=== PATIENT | female | born 1935 | race Two or more races ===

== ENCOUNTER 2016-04-23 10:47 | Inpatient (IN) | payer MEDICARE, OTHER ==
[2016-04-23] VITALS (17 sets, daily range): BP systolic 77–154; BP diastolic 34–113
[~2016-04-23] VITALS: Ht 162.6 cm; Wt 72.6 kg
[2016-04-23] MEDS ORDERED: CEFEPIME 1 GM in IV D5W 50 ML IV ONE (11:00)
[2016-04-23] MEDS ORDERED: IV NS 0.9% 1,000 ML BAG IV ONE ×2 (11:00→12:00)
[2016-04-23] MEDS ORDERED: VANCOMYCIN 1 GM in IV D5W 250 ML IV ONE (11:00)
[2016-04-23] MEDS ORDERED: IV SET PRIMARY PUMP SET 1 EA INFUS.SET MC ONE ×3 (11:11→17:39)
[2016-04-23] MEDS ORDERED: IV NS 0.9% 500 ML IV ONE ×3 (11:11→18:00)
[2016-04-23] MEDS ORDERED: IV SET PRIMARY 1 EA INFUS.SET MC ONE (11:11)
[2016-04-23] MEDS ORDERED: IV NS 0.9% 1,000 ML ONE ×2 (11:11→11:38)
[2016-04-23 11:13] LABS: BASOPHILS % (AUTO) 0.1 % (0.0-2.0); DIFF TOTAL % 100 %; EOSINOPHILS % (AUTO) 0.1 % (0.0-6.0); HEMATOCRIT 33 % (33-45); HEMOGLOBIN 10.4 g/dL (11.5-14.8); LYMPHOCYTES # (AUTO) 0.7 /CMM (0.8-4.8); LYMPHOCYTES % (AUTO) 4.2 % (20.0-44.0); MEAN CORPUSCULAR HEMOGLOBIN 28 PG (26.0-33.0); MEAN CORPUSCULAR HGB CONC 32 g/dl (31.0-36.0); MEAN CORPUSCULAR VOLUME 87 fL (82-100); MONOCYTES # (AUTO) 0.7 /CMM (0.1-1.30); MONOCYTES % (AUTO) 4.4 % (2.0-12.0); NEUTROPHILS # (AUTO) 15.1 /CMM (1.8-8.9); NEUTROPHILS % (AUTO) 91.2 % (43.0-81.0); PLATELET COUNT (AUTO) 285 /CMM (150-450); RED BLOOD CELL COUNT(AUTO) 3.75 MIL/uL (4.0-5.2); WHITE BLOOD COUNT (AUTO) 16.5 K/uL (4.3-11.0)
[2016-04-23] MEDS ORDERED: SECONDARY IV SET 1 EA INFUS.SET MC ONE (11:15)
[2016-04-23] MEDS ORDERED: ACETAMINOPHEN 650 MG/SUPP.RECT RC ONE ×2 (11:16→11:30)
[2016-04-23 11:25] LABS: ANION GAP 14 (5-14); CALCIUM, SERUM 8.2 mg/dL (8.5-10.1); CARBON DIOXIDE 30 mmol/L (21-32); CHLORIDE 100 mmol/L (98-107); CREATININE 2.1 mg/dL (0.6-1.3); GLUCOSE 164 mg/dL (74-106); POTASSIUM 3.7 mmol/L (3.5-5.1); SODIUM SERUM 140 mmol/L (136-145); UREA NITROGEN, BLOOD 16 mg/dL (7-18)
[2016-04-23 11:25] LABS: KETONES,URINE NEGATIVE (NEGATIVE); LEUKOCYTE ESTERASE ,URINE 2+ (NEGATIVE); PH,URINE 7.5 (5.0-8.0)
[2016-04-23 11:29] LABS: INR 1.01 (0.87-1.13); PROTHROMBIN TIME 10.6 SECS (9.5-12.7)
[2016-04-23 11:31] LABS: ALANINE AMINOTRANSFERASE 16 U/L (12-78); ALBUMIN 2.6 g/dL (3.4-5.0); ASPARTATE AMINOTRANSFERASE 42 U/L (15-37); BILIRUBIN,DIRECT 0.1 mg/dL (0.0-0.2); BILIRUBIN,TOTAL 0.3 mg/dL (0.2-1.0); INDIRECT BILIRUBIN 0.2 mg/dL (0.0-1.1); TOTAL PROTEIN, SERUM 7.8 g/dL (6.4-8.2)
[2016-04-23 11:33] LABS: TROPONIN I 0.025 ng/mL (0.00-0.056)
[2016-04-23 11:43] LABS: ABG BASE EXCESS 0.5 mmol/L; ABG HCO3 24.7 mmol/L; ABG PCO2 38.4 mmHg (35.0-45.0); ABG PH 7.427 (7.350-7.450); ABG PO2 169.5 mmHg (75.0-100.0); ALLEN TEST Pass; AaDO2 360.6 mmHg; O2Hb 98.2 % (94.0-97.0)
[2016-04-23 11:49] LABS: LACTIC ACID 3.1 mmol/L (0.4-2.0)
[2016-04-23 11:49] LABS: ADD UA MICROSCOPIC YES
[2016-04-23] MEDS ORDERED: LAMO25TA5 GT (11:49)
[2016-04-23] MEDS ORDERED: RISP0.253 GT (11:49)
[2016-04-23] MEDS ORDERED: ALBU2.5V12 IH (11:49)
[2016-04-23] MEDS ORDERED: GABA-532 GT (11:49)
[2016-04-23] MEDS ORDERED: ACET160S3 GT (11:49)
[2016-04-23] MEDS ORDERED: BRIN8DRO RIGHTEYE (11:49)
[2016-04-23] MEDS ORDERED: HYDR-3326 GT (11:49)
[2016-04-23] MEDS ORDERED: AMIN30LI4 GT (11:49)
[2016-04-23] MEDS ORDERED: LEVO200T8 GT (11:49)
[2016-04-23] MEDS ORDERED: FAMO20TA8 GT (11:49)
[2016-04-23] MEDS ORDERED: CALC1SOL2 GT (11:49)
[2016-04-23] MEDS ORDERED: TRAV5DRO RIGHTEYE (11:49)
[2016-04-23] MEDS ORDERED: APIX2.5T GT (11:49)
[2016-04-23] MEDS ORDERED: NA P133E RC (11:49)
[2016-04-23] MEDS ORDERED: [UNRECOGNIZED DRUG - CODE] SQ (11:49)
[2016-04-23] MEDS ORDERED: TAMS-12 GT (11:49)
[2016-04-23] MEDS ORDERED: MELA3TAB GT (11:49)
[2016-04-23] MEDS ORDERED: METO25TA6 GT (11:49)
[2016-04-23] MEDS ORDERED: FOLI0.8T2 GT (11:49)
[2016-04-23] MEDS ORDERED: AMIO200T2 GT (11:49)
[2016-04-23] MEDS ORDERED: MAGN400O6 GT (11:49)
[2016-04-23] MEDS ORDERED: MIRT15TA7 GT (11:49)
[2016-04-23] MEDS ORDERED: SODI650T GT (11:49)
[2016-04-23] MEDS ORDERED: ASPI81TA2 GT (11:49)
[2016-04-23] MEDS ORDERED: DOCU50LI GT (11:49)
[2016-04-23] MEDS ORDERED: LORA1TAB GT (11:49)
[2016-04-23] MEDS ORDERED: DONE5TAB3 GT (11:49)
[2016-04-23] MEDS ORDERED: ASCO500S2 GT (11:49)
[2016-04-23] MEDS ORDERED: BISA10SU8 RC (11:49)
[2016-04-23] MEDS ORDERED: PRAV20TA4 GT (11:49)
[2016-04-23] MEDS ORDERED: LEVO250T59 GT (11:49)
[2016-04-23] MEDS ORDERED: INSU100V7 SQ (11:49)
[2016-04-23] MEDS ORDERED: INSU100V27 SQ (11:49)
[2016-04-23] MEDS ORDERED: FERR220S2 GT (11:49)
[2016-04-23 12:01] LABS: ADD URINE CULTURE YES; WBC,URINE 21-50 /HPF (0-3)
[2016-04-23 12:09] LABS: *LACTIC ACID REFLEX FLAG YES
[2016-04-23] MEDS ORDERED: LORAZEPAM 1 MG TABLET GT PRN (14:00)
[2016-04-23] MEDS ORDERED: MAGNESIUM HYDROXIDE 30 ML UDC PO PRN (14:00)
[2016-04-23] MEDS ORDERED: HYDROCODONE/APAP 5/325MG 1 EACH TABLET PO PRN (14:00)
[2016-04-23] MEDS ORDERED: MAGNESIUM HYDROXIDE 30 ML UDC GT PRN (14:00)
[2016-04-23] MEDS ORDERED: NA PHOS,M-B/NA PHOS,DI-BA 1 EA ENEMA RC PRN (14:00)
[2016-04-23] MEDS ORDERED: ACETAMINOPHEN 325 MG TABLET PO PRN (14:00)
[2016-04-23] MEDS ORDERED: ZOLPIDEM TARTRATE 5 MG TABLET PO PRN (14:00)
[2016-04-23] MEDS ORDERED: HYDROCODONE/APAP 5/325MG 1 EACH TABLET GT PRN ×2 (14:00)
[2016-04-23] MEDS ORDERED: BISACODYL SUPP (10 MG) 10 MG/SUPP.RECT SUPP.RECT RC PRN (14:00)
[2016-04-23] MEDS ORDERED: MAG HYDROX/AL HYDROX/SIMETH 30 ML UDC PO PRN (14:00)
[2016-04-23] MEDS ORDERED: ONDANSETRON HCL/PF 4 MG/2 ML VIAL IVP PRN (14:00)
[2016-04-23] MEDS ORDERED: *INSULIN REGULAR(HUMULIN R)HUM 100 UNIT/ML VIAL SQ PRN (14:00)
[2016-04-23] MEDS ORDERED: ACETAMINOPHEN 650 MG/20.3 ML UDC GT PRN (14:00)
[2016-04-23] MEDS ORDERED: DEXTROSE 50%-WATER 50 ML DISP.SYRIN IV PRN (14:00)
[2016-04-23] MEDS ORDERED: FEE PK DOSING 1 MIN EA MC ONE (16:44)
[2016-04-23] MEDS ORDERED: ASCORBIC ACID SYRUP 500 MG/5 ML UDC GT SCH (17:00)
[2016-04-23] MEDS: METOPROLOL TARTRATE 25 MG TABLET GT SCH (17:00)
[2016-04-23] MEDS: BLOOD SUGAR DIAGNOSTIC 1 EACH STRIP VI SCH ×2 (17:30→22:02)
[2016-04-23] MEDS: risperiDONE 0.25 MG TABLET PO SCH (17:54)
[2016-04-23] MEDS: DOCUSATE SODIUM LIQ 100 MG/10 ML UDC GT SCH (17:54)
[2016-04-23] MEDS: FERROUS SULFATE (325 MG) 325 MG/TAB TABLET GT SCH (17:54)
[2016-04-23] MEDS: LamoTRIgine 25 MG TABLET GT SCH (17:55)
[2016-04-23] MEDS: BRINZOLAMIDE 1 % OPHTH SOLN 10 ML BOTTLE RIGHTEYE SCH (18:31)
[2016-04-23] MEDS: APIXABAN 2.5 MG TABLET GT SCH (18:31)
[2016-04-23] MEDS: PIPERACILLIN /TAZOBACTAM 2.25 G in IV D5W 50 ML IV SCH (19:32)
[2016-04-23] MEDS ORDERED: NOREPINEPHRINE 8 MG in IV D5W 500 ML IV PRN (21:00)
[2016-04-23 21:02] LABS: ABG BASE EXCESS -0.3 mmol/L; ABG HCO3 24.5 mmol/L; ABG PCO2 40.1 mmHg (35.0-45.0); ABG PH 7.403 (7.350-7.450); ABG PO2 171.5 mmHg (75.0-100.0); ABG TOTAL HEMOGLOBIN 9.1 G/dL (12.0-16.0); ALLEN TEST Pass; AaDO2 501.4 mmHg; O2Hb 97.1 % (94.0-97.0)
[2016-04-23] MEDS: INSULIN DETEMIR 100 UNIT/ML CARTRIDGE SQ SCH (22:00)
[2016-04-23] MEDS ORDERED: Medication Not On Formulary EA (Melatonin 6 MG) GT SCH (22:00)
[2016-04-23] MEDS ORDERED: PRAVASTATIN SODIUM 20 MG TABLET GT SCH (22:00)
[2016-04-23] MEDS: ATORVASTATIN 10 MG TABLET GT SCH (22:02)
[2016-04-23] MEDS: GABAPENTIN 100 MG CAPSULE GT SCH (22:02)
[2016-04-23] MEDS: DONEPEZIL 5 MG TABLET GT SCH (22:02)
[2016-04-23] MEDS: MIRTAZAPINE 15 MG TABLET GT SCH (22:02)
[2016-04-23] MEDS: LATANOPROST EYE DROP 0.005% 2.5 ML BOTTLE RIGHTEYE SCH (22:03)
[2016-04-23] MEDS: TAMSULOSIN 0.4 MG CAP.SR.24H GT SCH (22:05)
[2016-04-23] MEDS: ALBUTEROL FS 2.5 MG/0.5 ML VIAL.NEB IH SCH (22:50)
[2016-04-24] VITALS (81 sets, daily range): BP systolic 82–149; BP diastolic 38–94
[2016-04-24] MEDS: INSULIN REGULAR, HUMAN 100 UNIT/ML 3 ML VIAL SQ PRN ×5 (00:07→23:16)
[2016-04-24] MEDS ORDERED: IV SET PRIMARY PUMP SET 1 EA INFUS.SET MC ONE (01:36)
[2016-04-24] MEDS ORDERED: SECONDARY IV SET 1 EA INFUS.SET MC ONE (01:36)
[2016-04-24] MEDS ORDERED: IV NS 0.9% 250 ML IV ONE (01:37)
[2016-04-24] MEDS: PIPERACILLIN /TAZOBACTAM 2.25 G in IV D5W 50 ML IV SCH ×3 (02:19→17:36)
[2016-04-24 04:53] LABS: DIFF TOTAL % 100 %; HEMATOCRIT 27 % (33-45); HEMOGLOBIN 8.8 g/dL (11.5-14.8); LYMPHOCYTES # (AUTO) 1.2 /CMM (0.8-4.8); LYMPHOCYTES % (AUTO) 6.6 % (20.0-44.0); MEAN CORPUSCULAR HEMOGLOBIN 29 PG (26.0-33.0); MEAN CORPUSCULAR HGB CONC 32 g/dl (31.0-36.0); MEAN CORPUSCULAR VOLUME 88 fL (82-100); MONOCYTES # (AUTO) 0.7 /CMM (0.1-1.30); MONOCYTES % (AUTO) 4.3 % (2.0-12.0); NEUTROPHILS # (AUTO) 15.4 /CMM (1.8-8.9); NEUTROPHILS % (AUTO) 89.1 % (43.0-81.0); PLATELET COUNT (AUTO) 252 /CMM (150-450); RED BLOOD CELL COUNT(AUTO) 3.09 MIL/uL (4.0-5.2); WHITE BLOOD COUNT (AUTO) 17.3 K/uL (4.3-11.0)
[2016-04-24 05:09] LABS: CALCIUM, SERUM 7.1 mg/dL (8.5-10.1); CREATININE 2.8 mg/dL (0.6-1.3)
[2016-04-24 05:21] LABS: POTASSIUM 2.9 mmol/L (3.5-5.1)
[2016-04-24] MEDS: LEVOTHYROXINE SODIUM 100 MCG TABLET GT SCH (06:44)
[2016-04-24] MEDS: PANTOPRAZOLE 40 MG TABLET.DR PO SCH (06:44)
[2016-04-24] MEDS: FAMOTIDINE (20 MG) 20 MG TABLET GT SCH (06:44)
[2016-04-24] MEDS: BLOOD SUGAR DIAGNOSTIC 1 EACH STRIP VI SCH (06:53)
[2016-04-24] MEDS: ALBUTEROL FS 2.5 MG/0.5 ML VIAL.NEB IH SCH ×3 (07:45→23:36)
[2016-04-24] MEDS: risperiDONE 0.25 MG TABLET PO SCH ×2 (09:00→17:00)
[2016-04-24] MEDS ORDERED: SODIUM BICARBONATE 650 MG TABLET GT SCH (09:00)
[2016-04-24] MEDS: METOPROLOL TARTRATE 25 MG TABLET GT SCH ×2 (09:00→17:00)
[2016-04-24] MEDS: VIT B CMPLX 3/FA/VIT C/BIOTIN 1 TAB TABLET PO SCH (09:34)
[2016-04-24] MEDS: AMIODARONE HCL 200 MG TABLET GT SCH (09:34)
[2016-04-24] MEDS: LamoTRIgine 25 MG TABLET GT SCH ×2 (09:34→17:33)
[2016-04-24] MEDS: ASPIRIN 81 MG TAB.CHEW GT SCH (09:35)
[2016-04-24] MEDS: FERROUS SULFATE (325 MG) 325 MG/TAB TABLET GT SCH ×2 (09:35→17:33)
[2016-04-24] MEDS: APIXABAN 2.5 MG TABLET GT SCH (09:35)
[2016-04-24] MEDS: PROSOURCE / PROSTAT (PYXIS) 30 ML UDC GT SCH (09:36)
[2016-04-24] MEDS: DOCUSATE SODIUM LIQ 100 MG/10 ML UDC GT SCH ×2 (09:36→17:00)
[2016-04-24] MEDS: BRINZOLAMIDE 1 % OPHTH SOLN 10 ML BOTTLE RIGHTEYE SCH ×3 (09:37→17:35)
[2016-04-24] MEDS: INSULIN DETEMIR 100 UNIT/ML CARTRIDGE SQ SCH ×2 (09:37→21:16)
[2016-04-24] MEDS: ASCORBIC ACID 500 MG TABLET GT SCH ×2 (09:46→17:33)
[2016-04-24] MEDS ORDERED: POTASSIUM CHLORIDE 20 MEQ POWDER PACKET GT ONE (11:30)
[2016-04-24] MEDS ORDERED: POTASSIUM CHLORIDE 20 MEQ TAB.PRT.SR PO ONE (11:30)
[2016-04-24] MEDS: BLOOD SUGAR DIAGNOSTIC 1 EACH STRIP IN SCH ×3 (11:45→23:11)
[2016-04-24] MEDS ORDERED: BLOOD SUGAR DIAGNOSTIC 1 EACH STRIP IN SCH (12:00)
[2016-04-24] MEDS ORDERED: EPOETIN ALFA (10,000 UNIT) 10,000 UNIT/ML VIAL IV ONE (13:00)
[2016-04-24] MEDS ORDERED: CALCITRIOL ORAL SOLUTION 1 MCG/ML GT SCH (14:00)
[2016-04-24] MEDS ORDERED: EPOETIN ALFA (10,000 UNIT) 10,000 UNIT/ML VIAL SQ SCH (14:00)
[2016-04-24] MEDS: CALCITRIOL 0.25 MCG CAPSULE GT SCH (15:37)
[2016-04-24] MEDS: VANCOMYCIN 500 MG in IV D5W 100 ML IV PRN (15:57)
[2016-04-24] MEDS: ELIQUIS 2.5 MG GT SCH (17:32)
[2016-04-24] MEDS: LACTOBACILLUS RHAMNOSUS GG 1 EACH CAP.SPRINK GT SCH (17:33)
[2016-04-24] MEDS: DONEPEZIL 5 MG TABLET GT SCH (21:17)
[2016-04-24] MEDS: GABAPENTIN 100 MG CAPSULE GT SCH (21:17)
[2016-04-24] MEDS: TAMSULOSIN 0.4 MG CAP.SR.24H GT SCH (21:17)
[2016-04-24] MEDS: ATORVASTATIN 10 MG TABLET GT SCH (21:17)
[2016-04-24] MEDS: MIRTAZAPINE 15 MG TABLET GT SCH (21:18)
[2016-04-24] MEDS: LATANOPROST EYE DROP 0.005% 2.5 ML BOTTLE RIGHTEYE SCH (21:18)
[2016-04-25] VITALS (27 sets, daily range): BP systolic 63–158; BP diastolic 48–100
[2016-04-25] MEDS: PIPERACILLIN /TAZOBACTAM 2.25 G in IV D5W 50 ML IV SCH ×3 (02:54→17:12)
[2016-04-25 04:52] LABS: BASOPHILS % (AUTO) 0.1 % (0.0-2.0); DIFF TOTAL % 100 %; EOSINOPHILS % (AUTO) 0.1 % (0.0-6.0); HEMATOCRIT 27 % (33-45); HEMOGLOBIN 8.9 g/dL (11.5-14.8); LYMPHOCYTES % (AUTO) 10.7 % (20.0-44.0); MEAN CORPUSCULAR HEMOGLOBIN 28 PG (26.0-33.0); MEAN CORPUSCULAR HGB CONC 33 g/dl (31.0-36.0); MEAN CORPUSCULAR VOLUME 87 fL (82-100); MONOCYTES # (AUTO) 0.4 /CMM (0.1-1.30); MONOCYTES % (AUTO) 4.6 % (2.0-12.0); NEUTROPHILS # (AUTO) 8.1 /CMM (1.8-8.9); NEUTROPHILS % (AUTO) 84.5 % (43.0-81.0); PLATELET COUNT (AUTO) 236 /CMM (150-450); RED BLOOD CELL COUNT(AUTO) 3.14 MIL/uL (4.0-5.2); WHITE BLOOD COUNT (AUTO) 9.6 K/uL (4.3-11.0)
[2016-04-25 05:07] LABS: CALCIUM, SERUM 7.1 mg/dL (8.5-10.1); CREATININE 2.5 mg/dL (0.6-1.3)
[2016-04-25 05:19] LABS: POTASSIUM 3.4 mmol/L (3.5-5.1)
[2016-04-25] MEDS: INSULIN REGULAR, HUMAN 100 UNIT/ML 3 ML VIAL SQ PRN ×3 (05:41→17:12)
[2016-04-25] MEDS: BLOOD SUGAR DIAGNOSTIC 1 EACH STRIP IN SCH ×3 (05:42→17:13)
[2016-04-25] MEDS: LEVOTHYROXINE SODIUM 100 MCG TABLET GT SCH (06:37)
[2016-04-25] MEDS: PANTOPRAZOLE 40 MG TABLET.DR PO SCH (06:38)
[2016-04-25] MEDS: FAMOTIDINE (20 MG) 20 MG TABLET GT SCH (06:38)
[2016-04-25] MEDS: ALBUTEROL FS 2.5 MG/0.5 ML VIAL.NEB IH SCH ×3 (07:49→23:20)
[2016-04-25] MEDS: ELIQUIS 2.5 MG GT SCH ×2 (08:25→16:30)
[2016-04-25] MEDS: AMIODARONE HCL 200 MG TABLET GT SCH (08:26)
[2016-04-25] MEDS: DOCUSATE SODIUM LIQ 100 MG/10 ML UDC GT SCH ×2 (08:26→16:30)
[2016-04-25] MEDS: LACTOBACILLUS RHAMNOSUS GG 1 EACH CAP.SPRINK GT SCH ×2 (08:26→16:31)
[2016-04-25] MEDS: LamoTRIgine 25 MG TABLET GT SCH ×2 (08:26→16:31)
[2016-04-25] MEDS: ASCORBIC ACID 500 MG TABLET GT SCH ×2 (08:26→16:31)
[2016-04-25] MEDS: PROSOURCE / PROSTAT (PYXIS) 30 ML UDC GT SCH (08:26)
[2016-04-25] MEDS: ASPIRIN 81 MG TAB.CHEW GT SCH (08:26)
[2016-04-25] MEDS: VIT B CMPLX 3/FA/VIT C/BIOTIN 1 TAB TABLET PO SCH (08:26)
[2016-04-25] MEDS: risperiDONE 0.25 MG TABLET PO SCH ×2 (08:26→16:31)
[2016-04-25] MEDS: FERROUS SULFATE (325 MG) 325 MG/TAB TABLET GT SCH ×2 (08:26→16:31)
[2016-04-25] MEDS: METOPROLOL TARTRATE 25 MG TABLET GT SCH ×2 (08:27→16:30)
[2016-04-25] MEDS: Z GUARD REMEDY 2 OZ OINT TP PRN (08:28)
[2016-04-25] MEDS: BRINZOLAMIDE 1 % OPHTH SOLN 10 ML BOTTLE RIGHTEYE SCH ×3 (08:29→16:31)
[2016-04-25] MEDS ORDERED: POTASSIUM PHOSPHATE MM 15 MMOL in IV D5W 250 ML IV SCH (08:30)
[2016-04-25] MEDS: INSULIN DETEMIR 100 UNIT/ML CARTRIDGE SQ SCH ×2 (08:32→21:23)
[2016-04-25] MEDS ORDERED: IV SET PRIMARY PUMP SET 1 EA INFUS.SET MC ONE (09:54)
[2016-04-25] MEDS: GABAPENTIN 100 MG CAPSULE GT SCH (21:24)
[2016-04-25] MEDS: DONEPEZIL 5 MG TABLET GT SCH (21:24)
[2016-04-25] MEDS: MIRTAZAPINE 15 MG TABLET GT SCH (21:24)
[2016-04-25] MEDS: TAMSULOSIN 0.4 MG CAP.SR.24H GT SCH (21:24)
[2016-04-25] MEDS: ATORVASTATIN 10 MG TABLET GT SCH (21:24)
[2016-04-25] MEDS: RENAL NOVASOURCE 1,000 ML BOTTLE GT PRN (21:26)
[2016-04-25] MEDS ORDERED: LATANOPROST EYE DROP 0.005% 2.5 ML BOTTLE ONE (22:15)
[2016-04-25] MEDS: LATANOPROST EYE DROP 0.005% 2.5 ML BOTTLE RIGHTEYE SCH (23:07)
[2016-04-26] VITALS (9 sets, daily range): BP systolic 94–133; BP diastolic 50–92
[2016-04-26] MEDS: BLOOD SUGAR DIAGNOSTIC 1 EACH STRIP IN SCH ×5 (00:58→23:44)
[2016-04-26] MEDS: INSULIN REGULAR, HUMAN 100 UNIT/ML 3 ML VIAL SQ PRN ×4 (01:03→23:48)
[2016-04-26] MEDS ORDERED: IV NS 0.9% 250 ML IV ONE (02:32)
[2016-04-26] MEDS ORDERED: IV SET PRIMARY PUMP SET 1 EA INFUS.SET MC ONE (02:32)
[2016-04-26] MEDS ORDERED: SECONDARY IV SET 1 EA INFUS.SET MC ONE (02:33)
[2016-04-26] MEDS: PIPERACILLIN /TAZOBACTAM 2.25 G in IV D5W 50 ML IV SCH ×3 (02:37→17:37)
[2016-04-26] MEDS: ALBUTEROL FS 2.5 MG/0.5 ML VIAL.NEB IH SCH ×3 (07:41→23:08)
[2016-04-26] MEDS: AMIODARONE HCL 200 MG TABLET GT SCH (09:00)
[2016-04-26] MEDS: PROSOURCE / PROSTAT (PYXIS) 30 ML UDC GT SCH (09:00)
[2016-04-26] MEDS: BRINZOLAMIDE 1 % OPHTH SOLN 10 ML BOTTLE RIGHTEYE SCH ×3 (09:00→17:42)
[2016-04-26] MEDS: DOCUSATE SODIUM LIQ 100 MG/10 ML UDC GT SCH ×2 (09:40→16:12)
[2016-04-26] MEDS: METOPROLOL TARTRATE 25 MG TABLET GT SCH ×2 (09:41→16:11)
[2016-04-26] MEDS: PANTOPRAZOLE 40 MG TABLET.DR PO SCH (09:41)
[2016-04-26] MEDS: LEVOTHYROXINE SODIUM 100 MCG TABLET GT SCH (09:41)
[2016-04-26] MEDS: ASPIRIN 81 MG TAB.CHEW GT SCH (09:42)
[2016-04-26] MEDS: FAMOTIDINE (20 MG) 20 MG TABLET GT SCH (09:42)
[2016-04-26] MEDS: FERROUS SULFATE (325 MG) 325 MG/TAB TABLET GT SCH ×2 (09:43→16:12)
[2016-04-26] MEDS: ASCORBIC ACID 500 MG TABLET GT SCH ×2 (09:43→16:10)
[2016-04-26] MEDS: LamoTRIgine 25 MG TABLET GT SCH ×2 (09:43→16:10)
[2016-04-26] MEDS: VIT B CMPLX 3/FA/VIT C/BIOTIN 1 TAB TABLET PO SCH (09:43)
[2016-04-26] MEDS: LACTOBACILLUS RHAMNOSUS GG 1 EACH CAP.SPRINK GT SCH ×2 (09:43→16:10)
[2016-04-26 09:45] LABS: CALCIUM, SERUM 7.5 mg/dL (8.5-10.1); CREATININE 3.3 mg/dL (0.6-1.3); POTASSIUM 3.2 mmol/L (3.5-5.1)
[2016-04-26] MEDS: risperiDONE 0.25 MG TABLET PO SCH ×2 (09:57→16:10)
[2016-04-26] MEDS: ELIQUIS 2.5 MG GT SCH ×2 (09:58→17:36)
[2016-04-26] MEDS: INSULIN DETEMIR 100 UNIT/ML CARTRIDGE SQ SCH ×2 (10:33→21:08)
[2016-04-26] MEDS: DONEPEZIL 5 MG TABLET GT SCH (21:00)
[2016-04-26] MEDS: ATORVASTATIN 10 MG TABLET GT SCH (21:00)
[2016-04-26] MEDS: MIRTAZAPINE 15 MG TABLET GT SCH (21:00)
[2016-04-26] MEDS: GABAPENTIN 100 MG CAPSULE GT SCH (21:00)
[2016-04-26] MEDS: TAMSULOSIN 0.4 MG CAP.SR.24H GT SCH (21:03)
[2016-04-26] MEDS: LATANOPROST EYE DROP 0.005% 2.5 ML BOTTLE RIGHTEYE SCH (21:09)
[2016-04-26] MEDS: RENAL NOVASOURCE 1,000 ML BOTTLE GT PRN (21:09)
[2016-04-27] VITALS (9 sets, daily range): BP systolic 88–127; BP diastolic 45–61
[2016-04-27] MEDS: PIPERACILLIN /TAZOBACTAM 2.25 G in IV D5W 50 ML IV SCH ×3 (01:42→17:17)
[2016-04-27] MEDS ORDERED: IV NS 0.9% 250 ML IV ONE (05:16)
[2016-04-27] MEDS: BLOOD SUGAR DIAGNOSTIC 1 EACH STRIP IN SCH ×3 (05:43→17:17)
[2016-04-27] MEDS: INSULIN REGULAR, HUMAN 100 UNIT/ML 3 ML VIAL SQ PRN ×3 (05:45→17:31)
[2016-04-27 07:24] LABS: DIFF TOTAL % 100 %; EOSINOPHILS % (AUTO) 0.2 % (0.0-6.0); HEMATOCRIT 30 % (33-45); HEMOGLOBIN 9.6 g/dL (11.5-14.8); LYMPHOCYTES # (AUTO) 1.2 /CMM (0.8-4.8); LYMPHOCYTES % (AUTO) 9.8 % (20.0-44.0); MEAN CORPUSCULAR HEMOGLOBIN 28 PG (26.0-33.0); MEAN CORPUSCULAR HGB CONC 32 g/dl (31.0-36.0); MEAN CORPUSCULAR VOLUME 86 fL (82-100); MONOCYTES % (AUTO) 8.6 % (2.0-12.0); NEUTROPHILS # (AUTO) 9.6 /CMM (1.8-8.9); NEUTROPHILS % (AUTO) 81.4 % (43.0-81.0); PLATELET COUNT (AUTO) 277 /CMM (150-450); RED BLOOD CELL COUNT(AUTO) 3.47 MIL/uL (4.0-5.2); WHITE BLOOD COUNT (AUTO) 11.8 K/uL (4.3-11.0)
[2016-04-27 07:49] LABS: CALCIUM, SERUM 8.2 mg/dL (8.5-10.1); CREATININE 2.8 mg/dL (0.6-1.3); PHOSPHORUS 1.5 mg/dL (2.5-4.9); POTASSIUM 4.3 mmol/L (3.5-5.1)
[2016-04-27] MEDS: ALBUTEROL FS 2.5 MG/0.5 ML VIAL.NEB IH SCH ×3 (08:02→23:13)
[2016-04-27] MEDS: PROSOURCE / PROSTAT (PYXIS) 30 ML UDC GT SCH (09:15)
[2016-04-27] MEDS: ELIQUIS 2.5 MG GT SCH ×2 (09:15→17:26)
[2016-04-27] MEDS: DOCUSATE SODIUM LIQ 100 MG/10 ML UDC GT SCH ×2 (09:15→17:18)
[2016-04-27] MEDS: VIT B CMPLX 3/FA/VIT C/BIOTIN 1 TAB TABLET PO SCH (09:16)
[2016-04-27] MEDS: risperiDONE 0.25 MG TABLET PO SCH ×2 (09:16→17:18)
[2016-04-27] MEDS: LEVOTHYROXINE SODIUM 100 MCG TABLET GT SCH (09:16)
[2016-04-27] MEDS: LACTOBACILLUS RHAMNOSUS GG 1 EACH CAP.SPRINK GT SCH ×2 (09:16→17:18)
[2016-04-27] MEDS: FERROUS SULFATE (325 MG) 325 MG/TAB TABLET GT SCH ×2 (09:16→17:19)
[2016-04-27] MEDS: FAMOTIDINE (20 MG) 20 MG TABLET GT SCH (09:16)
[2016-04-27] MEDS: LamoTRIgine 25 MG TABLET GT SCH ×2 (09:16→17:17)
[2016-04-27] MEDS: ASPIRIN 81 MG TAB.CHEW GT SCH (09:16)
[2016-04-27] MEDS: PANTOPRAZOLE 40 MG TABLET.DR PO SCH (09:16)
[2016-04-27] MEDS: ASCORBIC ACID 500 MG TABLET GT SCH ×2 (09:16→17:19)
[2016-04-27] MEDS: AMIODARONE HCL 200 MG TABLET GT SCH (09:17)
[2016-04-27] MEDS: BRINZOLAMIDE 1 % OPHTH SOLN 10 ML BOTTLE RIGHTEYE SCH ×3 (09:17→17:18)
[2016-04-27] MEDS: METOPROLOL TARTRATE 25 MG TABLET GT SCH ×2 (09:18→17:25)
[2016-04-27] MEDS: INSULIN DETEMIR 100 UNIT/ML CARTRIDGE SQ SCH ×2 (09:26→21:56)
[2016-04-27] MEDS: CALCITRIOL 0.25 MCG CAPSULE GT SCH (15:06)
[2016-04-27] MEDS ORDERED: NEUTRA PHOS 1 POWD.PACKET GT ONE (19:30)
[2016-04-27] MEDS: LATANOPROST EYE DROP 0.005% 2.5 ML BOTTLE RIGHTEYE SCH (21:40)
[2016-04-27] MEDS: ATORVASTATIN 10 MG TABLET GT SCH (21:41)
[2016-04-27] MEDS: GABAPENTIN 100 MG CAPSULE GT SCH (21:41)
[2016-04-27] MEDS: DONEPEZIL 5 MG TABLET GT SCH (21:41)
[2016-04-27] MEDS: TAMSULOSIN 0.4 MG CAP.SR.24H GT SCH (21:41)
[2016-04-27] MEDS: MIRTAZAPINE 15 MG TABLET GT SCH (21:41)
[2016-04-28] MEDS: BLOOD SUGAR DIAGNOSTIC 1 EACH STRIP IN SCH ×4 (00:25→17:03)
[2016-04-28] MEDS: INSULIN REGULAR, HUMAN 100 UNIT/ML 3 ML VIAL SQ PRN ×4 (00:27→17:12)
[2016-04-28] MEDS: PIPERACILLIN /TAZOBACTAM 2.25 G in IV D5W 50 ML IV SCH ×3 (02:28→17:13)
[2016-04-28] MEDS: RENAL NOVASOURCE 1,000 ML BOTTLE GT PRN (03:21)
[2016-04-28 04:00] VITALS: BP_SYST 126; BP_DIAS 62; BP_DIAS 85
[2016-04-28] MEDS: ALBUTEROL FS 2.5 MG/0.5 ML VIAL.NEB IH SCH ×3 (07:13→23:28)
[2016-04-28 07:30] LABS: DIFF TOTAL % 100 %; EOSINOPHILS # (AUTO) 0.1 /CMM (0.0-0.7); EOSINOPHILS % (AUTO) 0.5 % (0.0-6.0); HEMATOCRIT 25 % (33-45); HEMOGLOBIN 8.3 g/dL (11.5-14.8); LYMPHOCYTES # (AUTO) 0.8 /CMM (0.8-4.8); LYMPHOCYTES % (AUTO) 8.2 % (20.0-44.0); MEAN CORPUSCULAR HEMOGLOBIN 29 PG (26.0-33.0); MEAN CORPUSCULAR HGB CONC 33 g/dl (31.0-36.0); MEAN CORPUSCULAR VOLUME 87 fL (82-100); MONOCYTES # (AUTO) 0.8 /CMM (0.1-1.30); MONOCYTES % (AUTO) 7.8 % (2.0-12.0); NEUTROPHILS # (AUTO) 8.4 /CMM (1.8-8.9); NEUTROPHILS % (AUTO) 83.5 % (43.0-81.0); PLATELET COUNT (AUTO) 324 /CMM (150-450); WHITE BLOOD COUNT (AUTO) 10.1 K/uL (4.3-11.0)
[2016-04-28 08:00] VITALS: BP 109/62
[2016-04-28 08:16] LABS: CALCIUM, SERUM 7.7 mg/dL (8.5-10.1); CREATININE 3.5 mg/dL (0.6-1.3); PHOSPHORUS 2.5 mg/dL (2.5-4.9); POTASSIUM 3.3 mmol/L (3.5-5.1)
[2016-04-28] MEDS: PROSOURCE / PROSTAT (PYXIS) 30 ML UDC GT SCH (08:44)
[2016-04-28] MEDS: BRINZOLAMIDE 1 % OPHTH SOLN 10 ML BOTTLE RIGHTEYE SCH ×3 (08:44→17:05)
[2016-04-28] MEDS: DOCUSATE SODIUM LIQ 100 MG/10 ML UDC GT SCH ×2 (08:45→17:03)
[2016-04-28] MEDS: PANTOPRAZOLE 40 MG/PACK PACK GT SCH (08:45)
[2016-04-28] MEDS: ASCORBIC ACID 500 MG TABLET GT SCH ×2 (08:45→17:04)
[2016-04-28] MEDS: ASPIRIN 81 MG TAB.CHEW GT SCH (08:45)
[2016-04-28] MEDS: FERROUS SULFATE (325 MG) 325 MG/TAB TABLET GT SCH ×2 (08:45→17:04)
[2016-04-28] MEDS: LamoTRIgine 25 MG TABLET GT SCH ×2 (08:45→17:04)
[2016-04-28] MEDS: LACTOBACILLUS RHAMNOSUS GG 1 EACH CAP.SPRINK GT SCH ×2 (08:45→17:04)
[2016-04-28] MEDS: FAMOTIDINE (20 MG) 20 MG TABLET GT SCH (08:45)
[2016-04-28] MEDS: LEVOTHYROXINE SODIUM 100 MCG TABLET GT SCH (08:45)
[2016-04-28] MEDS: risperiDONE 0.25 MG TABLET PO SCH ×2 (08:46→17:04)
[2016-04-28] MEDS: AMIODARONE HCL 200 MG TABLET GT SCH (08:46)
[2016-04-28] MEDS: VIT B CMPLX 3/FA/VIT C/BIOTIN 1 TAB TABLET PO SCH (08:46)
[2016-04-28] MEDS: METOPROLOL TARTRATE 25 MG TABLET GT SCH ×2 (08:47→17:05)
[2016-04-28] MEDS: INSULIN DETEMIR 100 UNIT/ML CARTRIDGE SQ SCH ×2 (09:09→21:49)
[2016-04-28] MEDS ORDERED: SECONDARY IV SET 1 EA INFUS.SET MC ONE (09:18)
[2016-04-28] MEDS: VANCOMYCIN 500 MG in IV D5W 100 ML IV PRN (09:47)
[2016-04-28] MEDS: ELIQUIS 2.5 MG GT SCH ×2 (10:13→17:04)
[2016-04-28] MEDS ORDERED: POTASSIUM CHLORIDE 20 MEQ TAB.PRT.SR PO ONE (11:00)
[2016-04-28] MEDS ORDERED: POTASSIUM CHLORIDE 20 MEQ POWDER PACKET GT SCH (13:00)
[2016-04-28] MEDS ORDERED: POTASSIUM CHLORIDE 20 MEQ POWDER PACKET GT ONE (13:30)
[2016-04-28 16:00] VITALS: BP 135/72
[2016-04-28] MEDS: Z GUARD REMEDY 2 OZ OINT TP PRN (17:05)
[2016-04-28 20:00] VITALS: BP 98/45
[2016-04-28] MEDS: DONEPEZIL 5 MG TABLET GT SCH (21:32)
[2016-04-28] MEDS: TAMSULOSIN 0.4 MG CAP.SR.24H GT SCH (21:32)
[2016-04-28] MEDS: ATORVASTATIN 10 MG TABLET GT SCH (21:32)
[2016-04-28] MEDS: MIRTAZAPINE 15 MG TABLET GT SCH (21:32)
[2016-04-28] MEDS: GABAPENTIN 100 MG CAPSULE GT SCH (21:32)
[2016-04-28] MEDS: LATANOPROST EYE DROP 0.005% 2.5 ML BOTTLE RIGHTEYE SCH (21:42)
[2016-04-29] MEDS ORDERED: hydrALAZINE HCL IV 20 MG VIAL ONE (01:04)
[2016-04-29] MEDS: PIPERACILLIN /TAZOBACTAM 2.25 G in IV D5W 50 ML IV SCH ×3 (01:49→17:43)
[2016-04-29 04:00] VITALS: BP 101/54
[2016-04-29] MEDS: BLOOD SUGAR DIAGNOSTIC 1 EACH STRIP IN SCH ×4 (06:00→18:03)
[2016-04-29] MEDS: FAMOTIDINE (20 MG) 20 MG TABLET GT SCH (06:25)
[2016-04-29] MEDS: LEVOTHYROXINE SODIUM 100 MCG TABLET GT SCH (06:26)
[2016-04-29] MEDS: DEXTROSE 50%-WATER 50 ML DISP.SYRIN IV PRN (06:50)
[2016-04-29 07:12] LABS: DIFF TOTAL % 100 %; EOSINOPHILS # (AUTO) 0.1 /CMM (0.0-0.7); EOSINOPHILS % (AUTO) 0.5 % (0.0-6.0); HEMATOCRIT 26 % (33-45); HEMOGLOBIN 8.4 g/dL (11.5-14.8); LYMPHOCYTES # (AUTO) 1.2 /CMM (0.8-4.8); LYMPHOCYTES % (AUTO) 6.7 % (20.0-44.0); MEAN CORPUSCULAR HEMOGLOBIN 29 PG (26.0-33.0); MEAN CORPUSCULAR HGB CONC 33 g/dl (31.0-36.0); MEAN CORPUSCULAR VOLUME 87 fL (82-100); MONOCYTES % (AUTO) 5.7 % (2.0-12.0); NEUTROPHILS # (AUTO) 15.7 /CMM (1.8-8.9); NEUTROPHILS % (AUTO) 87.1 % (43.0-81.0); PLATELET COUNT (AUTO) 375 /CMM (150-450); RED BLOOD CELL COUNT(AUTO) 2.93 MIL/uL (4.0-5.2)
[2016-04-29 08:00] VITALS: BP 122/59
[2016-04-29] MEDS: ALBUTEROL FS 2.5 MG/0.5 ML VIAL.NEB IH SCH ×3 (08:29→23:44)
[2016-04-29] MEDS: VIT B CMPLX 3/FA/VIT C/BIOTIN 1 TAB TABLET PO SCH (08:49)
[2016-04-29] MEDS: risperiDONE 0.25 MG TABLET PO SCH ×2 (08:49→17:37)
[2016-04-29] MEDS: FERROUS SULFATE (325 MG) 325 MG/TAB TABLET GT SCH ×2 (08:49→17:37)
[2016-04-29] MEDS: ASCORBIC ACID 500 MG TABLET GT SCH ×2 (08:49→17:38)
[2016-04-29] MEDS: PANTOPRAZOLE 40 MG/PACK PACK GT SCH (08:49)
[2016-04-29] MEDS: DOCUSATE SODIUM LIQ 100 MG/10 ML UDC GT SCH ×2 (08:49→17:37)
[2016-04-29] MEDS: PROSOURCE / PROSTAT (PYXIS) 30 ML UDC GT SCH (08:49)
[2016-04-29] MEDS: METOPROLOL TARTRATE 25 MG TABLET GT SCH ×2 (08:50→17:38)
[2016-04-29] MEDS: ASPIRIN 81 MG TAB.CHEW GT SCH (08:50)
[2016-04-29] MEDS: AMIODARONE HCL 200 MG TABLET GT SCH (08:50)
[2016-04-29] MEDS: LACTOBACILLUS RHAMNOSUS GG 1 EACH CAP.SPRINK GT SCH ×2 (08:50→17:37)
[2016-04-29] MEDS: LamoTRIgine 25 MG TABLET GT SCH ×2 (08:56→17:38)
[2016-04-29] MEDS: BRINZOLAMIDE 1 % OPHTH SOLN 10 ML BOTTLE RIGHTEYE SCH ×3 (08:57→17:00)
[2016-04-29] MEDS: ELIQUIS 2.5 MG GT SCH (09:00)
[2016-04-29] MEDS: INSULIN DETEMIR 100 UNIT/ML CARTRIDGE SQ SCH ×2 (09:00→21:18)
[2016-04-29 09:27] LABS: BILIRUBIN,TOTAL 0.3 mg/dL (0.2-1.0); CALCIUM, SERUM 7.8 mg/dL (8.5-10.1); PHOSPHORUS 2.7 mg/dL (2.5-4.9)
[2016-04-29 09:28] LABS: ALBUMIN 1.9 g/dL (3.4-5.0); TOTAL PROTEIN, SERUM 6.8 g/dL (6.4-8.2)
[2016-04-29 09:33] LABS: POTASSIUM 4.2 mmol/L (3.5-5.1)
[2016-04-29] MEDS: INSULIN REGULAR, HUMAN 100 UNIT/ML 3 ML VIAL SQ PRN (11:58)
[2016-04-29] MEDS: CALCITRIOL 0.25 MCG CAPSULE GT SCH (15:02)
[2016-04-29 16:00] VITALS: BP 108/47
[2016-04-29] MEDS: APIXABAN 2.5 MG TABLET PO SCH (18:03)
[2016-04-29 20:00] VITALS: BP 92/33
[2016-04-29] MEDS: TAMSULOSIN 0.4 MG CAP.SR.24H GT SCH (21:17)
[2016-04-29] MEDS: LATANOPROST EYE DROP 0.005% 2.5 ML BOTTLE RIGHTEYE SCH (21:17)
[2016-04-29] MEDS: MIRTAZAPINE 15 MG TABLET GT SCH (21:17)
[2016-04-29] MEDS: DONEPEZIL 5 MG TABLET GT SCH (21:17)
[2016-04-29] MEDS: GABAPENTIN 100 MG CAPSULE GT SCH (21:17)
[2016-04-29] MEDS: ATORVASTATIN 10 MG TABLET GT SCH (21:18)
[2016-04-29] MEDS ORDERED: IV NS 0.9% 250 ML IV ONE (21:20)
[2016-04-30] VITALS: BP 84/32
[2016-04-30] MEDS: BLOOD SUGAR DIAGNOSTIC 1 EACH STRIP IN SCH ×4 (00:57→16:51)
[2016-04-30] MEDS: INSULIN REGULAR, HUMAN 100 UNIT/ML 3 ML VIAL SQ PRN ×2 (01:01→16:56)
[2016-04-30] MEDS ORDERED: IV NS 0.9% 250 ML IV ONE ×3 (01:03→01:45)
[2016-04-30] MEDS: PIPERACILLIN /TAZOBACTAM 2.25 G in IV D5W 50 ML IV SCH (01:08)
[2016-04-30 04:00] VITALS: BP 89/41
[2016-04-30] MEDS: DEXTROSE 50%-WATER 50 ML DISP.SYRIN IV PRN (06:05)
[2016-04-30] MEDS: FAMOTIDINE (20 MG) 20 MG TABLET GT SCH (07:30)
[2016-04-30] MEDS: LEVOTHYROXINE SODIUM 100 MCG TABLET GT SCH (07:30)
[2016-04-30] MEDS: ALBUTEROL FS 2.5 MG/0.5 ML VIAL.NEB IH SCH ×3 (07:39→23:32)
[2016-04-30 08:00] VITALS: BP 81/39
[2016-04-30 08:03] LABS: CALCIUM, SERUM 7.4 mg/dL (8.5-10.1); CREATININE 3.8 mg/dL (0.6-1.3); POTASSIUM 4.3 mmol/L (3.5-5.1)
[2016-04-30] MEDS: LamoTRIgine 25 MG TABLET GT SCH ×2 (09:00→17:11)
[2016-04-30] MEDS: FERROUS SULFATE (325 MG) 325 MG/TAB TABLET GT SCH ×2 (09:00→17:07)
[2016-04-30] MEDS: PANTOPRAZOLE 40 MG/PACK PACK GT SCH (09:00)
[2016-04-30] MEDS: ASCORBIC ACID 500 MG TABLET GT SCH ×2 (09:00→17:00)
[2016-04-30] MEDS: ASPIRIN 81 MG TAB.CHEW GT SCH (09:00)
[2016-04-30] MEDS: PROSOURCE / PROSTAT (PYXIS) 30 ML UDC GT SCH (09:00)
[2016-04-30] MEDS: LACTOBACILLUS RHAMNOSUS GG 1 EACH CAP.SPRINK GT SCH ×2 (09:00→17:07)
[2016-04-30] MEDS: AMIODARONE HCL 200 MG TABLET GT SCH (09:00)
[2016-04-30] MEDS: INSULIN DETEMIR 100 UNIT/ML CARTRIDGE SQ SCH ×2 (09:00→21:39)
[2016-04-30] MEDS: risperiDONE 0.25 MG TABLET PO SCH ×2 (09:00→17:07)
[2016-04-30] MEDS: VIT B CMPLX 3/FA/VIT C/BIOTIN 1 TAB TABLET PO SCH (09:00)
[2016-04-30] MEDS: METOPROLOL TARTRATE 25 MG TABLET GT SCH ×2 (09:00→17:11)
[2016-04-30] MEDS: DOCUSATE SODIUM LIQ 100 MG/10 ML UDC GT SCH ×2 (09:00→17:06)
[2016-04-30] MEDS: APIXABAN 2.5 MG TABLET PO SCH ×2 (09:00→17:00)
[2016-04-30 09:18] LABS: DIFF TOTAL % 100 %; EOSINOPHILS # (AUTO) 0.1 /CMM (0.0-0.7); EOSINOPHILS % (AUTO) 0.4 % (0.0-6.0); HEMATOCRIT 24 % (33-45); HEMOGLOBIN 7.6 g/dL (11.5-14.8); LYMPHOCYTES # (AUTO) 1.4 /CMM (0.8-4.8); LYMPHOCYTES % (AUTO) 7.1 % (20.0-44.0); MEAN CORPUSCULAR HEMOGLOBIN 28 PG (26.0-33.0); MEAN CORPUSCULAR HGB CONC 32 g/dl (31.0-36.0); MEAN CORPUSCULAR VOLUME 88 fL (82-100); MONOCYTES # (AUTO) 1.2 /CMM (0.1-1.30); MONOCYTES % (AUTO) 6.4 % (2.0-12.0); NEUTROPHILS # (AUTO) 16.5 /CMM (1.8-8.9); NEUTROPHILS % (AUTO) 86.1 % (43.0-81.0); PLATELET COUNT (AUTO) 359 /CMM (150-450); WHITE BLOOD COUNT (AUTO) 19.1 K/uL (4.3-11.0)
[2016-04-30] MEDS: BRINZOLAMIDE 1 % OPHTH SOLN 10 ML BOTTLE RIGHTEYE SCH ×3 (09:45→17:07)
[2016-04-30 10:00] LABS: ANISOCYTOSIS 1+; BAND % (MANUAL) 3 % (0.0-5.0); LYMPHOCYTES % (MANUAL) 5 % (16-48); PLATELET ESTIMATE ADEQUATE
[2016-04-30] MEDS ORDERED: D5 IV PRN (10:00)
[2016-04-30] MEDS ORDERED: NACL IV PRN (10:00)
[2016-04-30] MEDS ORDERED: MEROPENEM 1 G in IV NS 0.9% 100 ML IV SCH (11:00)
[2016-04-30] MEDS ORDERED: IV D5/ 0.9% NACL 1,000 ML IV ONE (11:00)
[2016-04-30] MEDS: VANCOMYCIN HCL 125 MG/2.5 ML ORAL.SUSP PO SCH ×2 (12:00→18:00)
[2016-04-30] MEDS: MEROPENEM 500 MG in IV NS 0.9% 50 ML IV SCH (13:45)
[2016-04-30] MEDS: OSELTAMIVIR PHOSPHATE 75 MG CAPSULE PO SCH ×2 (13:50→17:11)
[2016-04-30] MEDS: NYSTATIN CREAM 15 GM TUBE TP SCH ×2 (13:51→17:07)
[2016-04-30 18:27] VITALS: BP 113/54
[2016-04-30 20:00] VITALS: BP 109/56
[2016-04-30] MEDS: ATORVASTATIN 10 MG TABLET GT SCH (21:37)
[2016-04-30] MEDS: TAMSULOSIN 0.4 MG CAP.SR.24H GT SCH (21:37)
[2016-04-30] MEDS: DONEPEZIL 5 MG TABLET GT SCH (21:37)
[2016-04-30] MEDS: GABAPENTIN 100 MG CAPSULE GT SCH (21:38)
[2016-04-30] MEDS: MIRTAZAPINE 15 MG TABLET GT SCH (21:38)
[2016-04-30] MEDS: LATANOPROST EYE DROP 0.005% 2.5 ML BOTTLE RIGHTEYE SCH (21:47)
[2016-05-01] VITALS: BP 116/57
[2016-05-01 00:28] VITALS: BP 116/57
[2016-05-01] MEDS: BLOOD SUGAR DIAGNOSTIC 1 EACH STRIP IN SCH ×4 (00:57→18:42)
[2016-05-01] MEDS: VANCOMYCIN HCL 125 MG/2.5 ML ORAL.SUSP PO SCH ×4 (00:57→18:45)
[2016-05-01] MEDS: INSULIN REGULAR, HUMAN 100 UNIT/ML 3 ML VIAL SQ PRN ×2 (01:03→18:49)
[2016-05-01 04:00] VITALS: BP 95/57
[2016-05-01] MEDS: ALBUTEROL FS 2.5 MG/0.5 ML VIAL.NEB IH SCH ×3 (07:31→23:30)
[2016-05-01 07:44] LABS: CALCIUM, SERUM 7.8 mg/dL (8.5-10.1)
[2016-05-01 08:00] VITALS: BP 107/60
[2016-05-01 08:04] LABS: DIFF TOTAL % 100 %; EOSINOPHILS # (AUTO) 0.1 /CMM (0.0-0.7); EOSINOPHILS % (AUTO) 0.9 % (0.0-6.0); HEMATOCRIT 25 % (33-45); LYMPHOCYTES # (AUTO) 1.1 /CMM (0.8-4.8); LYMPHOCYTES % (AUTO) 7.2 % (20.0-44.0); MEAN CORPUSCULAR HEMOGLOBIN 28 PG (26.0-33.0); MEAN CORPUSCULAR HGB CONC 32 g/dl (31.0-36.0); MEAN CORPUSCULAR VOLUME 88 fL (82-100); MONOCYTES # (AUTO) 0.8 /CMM (0.1-1.30); MONOCYTES % (AUTO) 5.4 % (2.0-12.0); NEUTROPHILS # (AUTO) 12.7 /CMM (1.8-8.9); NEUTROPHILS % (AUTO) 86.5 % (43.0-81.0); PLATELET COUNT (AUTO) 411 /CMM (150-450); RED BLOOD CELL COUNT(AUTO) 2.85 MIL/uL (4.0-5.2); WHITE BLOOD COUNT (AUTO) 14.7 K/uL (4.3-11.0)
[2016-05-01] MEDS: INSULIN DETEMIR 100 UNIT/ML CARTRIDGE SQ SCH ×2 (09:00→21:23)
[2016-05-01] MEDS ORDERED: IV SET PRIMARY PUMP SET 1 EA INFUS.SET MC ONE (09:41)
[2016-05-01] MEDS: FAMOTIDINE (20 MG) 20 MG TABLET GT SCH (10:13)
[2016-05-01] MEDS: PANTOPRAZOLE 40 MG/PACK PACK GT SCH (10:15)
[2016-05-01] MEDS: LEVOTHYROXINE SODIUM 100 MCG TABLET GT SCH (10:15)
[2016-05-01] MEDS: ASPIRIN 81 MG TAB.CHEW GT SCH (10:16)
[2016-05-01] MEDS: ASCORBIC ACID 500 MG TABLET GT SCH ×2 (10:16→18:44)
[2016-05-01] MEDS: VIT B CMPLX 3/FA/VIT C/BIOTIN 1 TAB TABLET PO SCH (10:16)
[2016-05-01] MEDS: LACTOBACILLUS RHAMNOSUS GG 1 EACH CAP.SPRINK GT SCH ×2 (10:16→18:43)
[2016-05-01] MEDS: DOCUSATE SODIUM LIQ 100 MG/10 ML UDC GT SCH ×2 (10:16→18:43)
[2016-05-01] MEDS: FERROUS SULFATE (325 MG) 325 MG/TAB TABLET GT SCH ×2 (10:17→18:43)
[2016-05-01] MEDS: APIXABAN 2.5 MG TABLET PO SCH ×2 (10:17→18:46)
[2016-05-01] MEDS: PROSOURCE / PROSTAT (PYXIS) 30 ML UDC GT SCH (10:17)
[2016-05-01] MEDS: OSELTAMIVIR PHOSPHATE 75 MG CAPSULE PO SCH (10:17)
[2016-05-01] MEDS: risperiDONE 0.25 MG TABLET PO SCH ×2 (10:18→18:43)
[2016-05-01] MEDS: AMIODARONE HCL 200 MG TABLET GT SCH (10:18)
[2016-05-01] MEDS: LamoTRIgine 25 MG TABLET GT SCH ×2 (10:18→18:43)
[2016-05-01] MEDS: METOPROLOL TARTRATE 25 MG TABLET GT SCH ×2 (10:19→17:00)
[2016-05-01] MEDS: NYSTATIN CREAM 15 GM TUBE TP SCH ×2 (10:20→18:47)
[2016-05-01] MEDS: BRINZOLAMIDE 1 % OPHTH SOLN 10 ML BOTTLE RIGHTEYE SCH ×3 (10:20→18:47)
[2016-05-01] MEDS: MEROPENEM 500 MG in IV NS 0.9% 50 ML IV SCH (13:40)
[2016-05-01] MEDS: LATANOPROST EYE DROP 0.005% 2.5 ML BOTTLE RIGHTEYE SCH (13:41)
[2016-05-01 16:00] VITALS: BP 95/43
[2016-05-01] MEDS: CALCITRIOL 0.25 MCG CAPSULE GT SCH (16:09)
[2016-05-01] MEDS: NYSTATIN TOP POWDER 15 GM BOTTLE TP SCH (18:45)
[2016-05-01 20:00] VITALS: BP 108/45
[2016-05-01] MEDS: TAMSULOSIN 0.4 MG CAP.SR.24H GT SCH (21:22)
[2016-05-01] MEDS: MIRTAZAPINE 15 MG TABLET GT SCH (21:22)
[2016-05-01] MEDS: GABAPENTIN 100 MG CAPSULE GT SCH (21:22)
[2016-05-01] MEDS: DONEPEZIL 5 MG TABLET GT SCH (21:22)
[2016-05-01] MEDS: ATORVASTATIN 10 MG TABLET GT SCH (21:22)
[2016-05-02] VITALS: BP 100/45
[2016-05-02] MEDS: VANCOMYCIN HCL 125 MG/2.5 ML ORAL.SUSP PO SCH ×4 (00:02→17:33)
[2016-05-02] MEDS: INSULIN REGULAR, HUMAN 100 UNIT/ML 3 ML VIAL SQ PRN (00:02)
[2016-05-02 04:00] VITALS: BP 98/43
[2016-05-02] MEDS: BLOOD SUGAR DIAGNOSTIC 1 EACH STRIP IN SCH ×5 (06:05→17:14)
[2016-05-02] MEDS: DEXTROSE 50%-WATER 50 ML DISP.SYRIN IV PRN ×2 (06:07→11:04)
[2016-05-02] MEDS: ALBUTEROL FS 2.5 MG/0.5 ML VIAL.NEB IH SCH ×3 (07:35→23:52)
[2016-05-02 07:38] LABS: DIFF TOTAL % 100 %; EOSINOPHILS % (AUTO) 0.3 % (0.0-6.0); HEMATOCRIT 24 % (33-45); HEMOGLOBIN 7.9 g/dL (11.5-14.8); LYMPHOCYTES # (AUTO) 0.7 /CMM (0.8-4.8); LYMPHOCYTES % (AUTO) 4.5 % (20.0-44.0); MEAN CORPUSCULAR HEMOGLOBIN 29 PG (26.0-33.0); MEAN CORPUSCULAR HGB CONC 33 g/dl (31.0-36.0); MEAN CORPUSCULAR VOLUME 88 fL (82-100); MONOCYTES # (AUTO) 0.8 /CMM (0.1-1.30); MONOCYTES % (AUTO) 4.7 % (2.0-12.0); NEUTROPHILS # (AUTO) 14.6 /CMM (1.8-8.9); NEUTROPHILS % (AUTO) 90.5 % (43.0-81.0); PLATELET COUNT (AUTO) 448 /CMM (150-450); RED BLOOD CELL COUNT(AUTO) 2.75 MIL/uL (4.0-5.2); WHITE BLOOD COUNT (AUTO) 16.1 K/uL (4.3-11.0)
[2016-05-02] MEDS: FAMOTIDINE (20 MG) 20 MG TABLET GT SCH (07:42)
[2016-05-02] MEDS: LEVOTHYROXINE SODIUM 100 MCG TABLET GT SCH (07:46)
[2016-05-02 08:00] VITALS: BP 85/45
[2016-05-02] MEDS: FERROUS SULFATE (325 MG) 325 MG/TAB TABLET GT SCH ×2 (08:06→17:06)
[2016-05-02] MEDS: ASPIRIN 81 MG TAB.CHEW GT SCH (08:07)
[2016-05-02] MEDS: PROSOURCE / PROSTAT (PYXIS) 30 ML UDC GT SCH ×3 (08:08→08:22)
[2016-05-02] MEDS: DOCUSATE SODIUM LIQ 100 MG/10 ML UDC GT SCH ×2 (08:08→17:05)
[2016-05-02] MEDS: AMIODARONE HCL 200 MG TABLET GT SCH (08:17)
[2016-05-02] MEDS: LamoTRIgine 25 MG TABLET GT SCH ×2 (08:18→17:30)
[2016-05-02] MEDS: METOPROLOL TARTRATE 25 MG TABLET GT SCH ×2 (08:21→17:00)
[2016-05-02] MEDS: LACTOBACILLUS RHAMNOSUS GG 1 EACH CAP.SPRINK GT SCH ×2 (08:23→17:28)
[2016-05-02] MEDS: INSULIN DETEMIR 100 UNIT/ML CARTRIDGE SQ SCH ×2 (08:30→22:11)
[2016-05-02] MEDS: PANTOPRAZOLE 40 MG/PACK PACK GT SCH (08:32)
[2016-05-02] MEDS: ASCORBIC ACID 500 MG TABLET GT SCH ×2 (09:00→17:09)
[2016-05-02] MEDS: APIXABAN 2.5 MG TABLET PO SCH ×2 (09:00→17:29)
[2016-05-02] MEDS: VIT B CMPLX 3/FA/VIT C/BIOTIN 1 TAB TABLET PO SCH (09:00)
[2016-05-02] MEDS: NYSTATIN CREAM 15 GM TUBE TP SCH ×2 (10:25→17:09)
[2016-05-02] MEDS: NYSTATIN TOP POWDER 15 GM BOTTLE TP SCH ×2 (10:26→17:08)
[2016-05-02] MEDS: LATANOPROST EYE DROP 0.005% 2.5 ML BOTTLE RIGHTEYE SCH (10:27)
[2016-05-02] MEDS: BRINZOLAMIDE 1 % OPHTH SOLN 10 ML BOTTLE RIGHTEYE SCH ×3 (10:29→17:07)
[2016-05-02] MEDS: risperiDONE 0.25 MG TABLET PO SCH ×2 (10:33→17:13)
[2016-05-02] MEDS: MEROPENEM 500 MG in IV NS 0.9% 50 ML IV SCH (11:07)
[2016-05-02] MEDS: VANCOMYCIN 500 MG in IV D5W 100 ML IV PRN ×2 (11:44→17:10)
[2016-05-02 16:00] VITALS: BP 94/46
[2016-05-02] MEDS ORDERED: VANCOMYCIN 500 MG in IV D5W 100 ML IV ONE (16:00)
[2016-05-02 20:00] VITALS: BP 92/41
[2016-05-02] MEDS: MIRTAZAPINE 15 MG TABLET GT SCH (22:07)
[2016-05-02] MEDS: DONEPEZIL 5 MG TABLET GT SCH (22:07)
[2016-05-02] MEDS: GABAPENTIN 100 MG CAPSULE GT SCH (22:07)
[2016-05-02] MEDS: ATORVASTATIN 10 MG TABLET GT SCH (22:07)
[2016-05-02] MEDS: TAMSULOSIN 0.4 MG CAP.SR.24H GT SCH (22:07)
[2016-05-03] MEDS: VANCOMYCIN FOR PO/GT USE 500 MG ORAL.SUSP PO SCH ×2 (00:45→05:12)
[2016-05-03 04:00] VITALS: BP 96/46
[2016-05-03] MEDS: DEXTROSE 50%-WATER 50 ML DISP.SYRIN IV PRN (05:16)
[2016-05-03 05:27] LABS: BASOPHILS % (AUTO) 0.2 % (0.0-2.0); DIFF TOTAL % 100 %; EOSINOPHILS # (AUTO) 0.1 /CMM (0.0-0.7); EOSINOPHILS % (AUTO) 0.5 % (0.0-6.0); HEMATOCRIT 25 % (33-45); LYMPHOCYTES # (AUTO) 1.6 /CMM (0.8-4.8); LYMPHOCYTES % (AUTO) 13.3 % (20.0-44.0); MEAN CORPUSCULAR HEMOGLOBIN 28 PG (26.0-33.0); MEAN CORPUSCULAR HGB CONC 32 g/dl (31.0-36.0); MEAN CORPUSCULAR VOLUME 87 fL (82-100); MONOCYTES % (AUTO) 7.7 % (2.0-12.0); NEUTROPHILS # (AUTO) 9.7 /CMM (1.8-8.9); NEUTROPHILS % (AUTO) 78.3 % (43.0-81.0); PLATELET COUNT (AUTO) 463 /CMM (150-450); RED BLOOD CELL COUNT(AUTO) 2.87 MIL/uL (4.0-5.2); WHITE BLOOD COUNT (AUTO) 12.4 K/uL (4.3-11.0)
[2016-05-03 05:38] LABS: CALCIUM, SERUM 7.7 mg/dL (8.5-10.1); CREATININE 3.1 mg/dL (0.6-1.3); POTASSIUM 3.3 mmol/L (3.5-5.1)
[2016-05-03] MEDS: BLOOD SUGAR DIAGNOSTIC 1 EACH STRIP IN SCH ×4 (06:20→23:43)
[2016-05-03 08:00] VITALS: BP 109/56
[2016-05-03] MEDS: ALBUTEROL FS 2.5 MG/0.5 ML VIAL.NEB IH SCH ×3 (08:41→22:59)
[2016-05-03] MEDS: INSULIN DETEMIR 100 UNIT/ML CARTRIDGE SQ SCH ×2 (09:00→21:09)
[2016-05-03] MEDS ORDERED: VANCOMYCIN HCL 125 MG/2.5 ML ORAL.SUSP PO SCH ×2 (09:00)
[2016-05-03 09:14] LABS: BASOPHILS % (AUTO) 0.2 % (0.0-2.0); DIFF TOTAL % 100 %; EOSINOPHILS # (AUTO) 0.1 /CMM (0.0-0.7); EOSINOPHILS % (AUTO) 0.6 % (0.0-6.0); HEMATOCRIT 26 % (33-45); HEMOGLOBIN 8.4 g/dL (11.5-14.8); LYMPHOCYTES # (AUTO) 1.2 /CMM (0.8-4.8); LYMPHOCYTES % (AUTO) 9.1 % (20.0-44.0); MEAN CORPUSCULAR HEMOGLOBIN 28 PG (26.0-33.0); MEAN CORPUSCULAR HGB CONC 33 g/dl (31.0-36.0); MEAN CORPUSCULAR VOLUME 87 fL (82-100); MONOCYTES # (AUTO) 0.9 /CMM (0.1-1.30); MONOCYTES % (AUTO) 6.9 % (2.0-12.0); NEUTROPHILS # (AUTO) 11.4 /CMM (1.8-8.9); NEUTROPHILS % (AUTO) 83.2 % (43.0-81.0); PLATELET COUNT (AUTO) 457 /CMM (150-450); RED BLOOD CELL COUNT(AUTO) 2.97 MIL/uL (4.0-5.2); WHITE BLOOD COUNT (AUTO) 13.7 K/uL (4.3-11.0)
[2016-05-03] MEDS: PANTOPRAZOLE 40 MG/PACK PACK GT SCH (09:36)
[2016-05-03] MEDS: PROSOURCE / PROSTAT (PYXIS) 30 ML UDC GT SCH (09:37)
[2016-05-03] MEDS: AMIODARONE HCL 200 MG TABLET GT SCH (09:37)
[2016-05-03] MEDS: LEVOTHYROXINE SODIUM 100 MCG TABLET GT SCH (09:37)
[2016-05-03] MEDS: ASPIRIN 81 MG TAB.CHEW GT SCH (09:37)
[2016-05-03] MEDS: ASCORBIC ACID 500 MG TABLET GT SCH ×2 (09:38→17:15)
[2016-05-03] MEDS: risperiDONE 0.25 MG TABLET PO SCH ×2 (09:38→17:15)
[2016-05-03] MEDS: LamoTRIgine 25 MG TABLET GT SCH ×2 (09:38→17:05)
[2016-05-03] MEDS: LACTOBACILLUS RHAMNOSUS GG 1 EACH CAP.SPRINK GT SCH ×2 (09:39→17:05)
[2016-05-03] MEDS: VIT B CMPLX 3/FA/VIT C/BIOTIN 1 TAB TABLET PO SCH (09:39)
[2016-05-03] MEDS: METOPROLOL TARTRATE 25 MG TABLET GT SCH ×2 (09:39→17:00)
[2016-05-03] MEDS: DOCUSATE SODIUM LIQ 100 MG/10 ML UDC GT SCH ×2 (09:39→17:00)
[2016-05-03] MEDS: FAMOTIDINE (20 MG) 20 MG TABLET GT SCH (09:39)
[2016-05-03] MEDS: FERROUS SULFATE (325 MG) 325 MG/TAB TABLET GT SCH ×2 (09:39→17:05)
[2016-05-03] MEDS: APIXABAN 2.5 MG TABLET PO SCH ×2 (09:40→17:15)
[2016-05-03] MEDS: NYSTATIN TOP POWDER 15 GM BOTTLE TP SCH ×2 (09:55→17:17)
[2016-05-03] MEDS: BRINZOLAMIDE 1 % OPHTH SOLN 10 ML BOTTLE RIGHTEYE SCH ×3 (09:56→17:17)
[2016-05-03] MEDS: NYSTATIN CREAM 15 GM TUBE TP SCH ×2 (09:57→17:17)
[2016-05-03] MEDS: MEROPENEM 500 MG in IV NS 0.9% 50 ML IV SCH (12:26)
[2016-05-03] MEDS ORDERED: IV SET PRIMARY PUMP SET 1 EA INFUS.SET MC ONE (12:32)
[2016-05-03] MEDS ORDERED: SECONDARY IV SET 1 EA INFUS.SET MC ONE (12:32)
[2016-05-03] MEDS ORDERED: IV NS 0.9% 250 ML IV ONE (12:33)
[2016-05-03] MEDS: VANCOMYCIN HCL 125 MG/2.5 ML ORAL.SUSP PO SCH ×3 (13:39→21:11)
[2016-05-03 16:00] VITALS: BP_SYST 100; BP_SYST 114; BP_DIAS 61; BP_DIAS 62
[2016-05-03] MEDS: INSULIN REGULAR, HUMAN 100 UNIT/ML 3 ML VIAL SQ PRN (17:09)
[2016-05-03] MEDS: RENAL NOVASOURCE 1,000 ML BOTTLE GT PRN ×2 (17:18→21:15)
[2016-05-03 20:00] VITALS: BP 102/51
[2016-05-03] MEDS ORDERED: POTASSIUM CHLORIDE 20 MEQ TAB.PRT.SR PO ONE ×2 (20:12→20:30)
[2016-05-03] MEDS: GABAPENTIN 100 MG CAPSULE GT SCH (21:10)
[2016-05-03] MEDS: TAMSULOSIN 0.4 MG CAP.SR.24H GT SCH (21:10)
[2016-05-03] MEDS: DONEPEZIL 5 MG TABLET GT SCH (21:11)
[2016-05-03] MEDS: ATORVASTATIN 10 MG TABLET GT SCH (21:11)
[2016-05-03] MEDS: LATANOPROST EYE DROP 0.005% 2.5 ML BOTTLE RIGHTEYE SCH (21:14)
[2016-05-03] MEDS: MIRTAZAPINE 15 MG TABLET GT SCH (21:14)
[2016-05-04 04:00] VITALS: BP 100/50
[2016-05-04] MEDS: BLOOD SUGAR DIAGNOSTIC 1 EACH STRIP IN SCH ×4 (05:58→23:15)
[2016-05-04] MEDS: INSULIN REGULAR, HUMAN 100 UNIT/ML 3 ML VIAL SQ PRN ×3 (06:03→17:37)
[2016-05-04 06:40] LABS: BASOPHILS % (AUTO) 0.3 % (0.0-2.0); DIFF TOTAL % 100 %; EOSINOPHILS # (AUTO) 0.1 /CMM (0.0-0.7); EOSINOPHILS % (AUTO) 1.2 % (0.0-6.0); HEMATOCRIT 25 % (33-45); HEMOGLOBIN 8.3 g/dL (11.5-14.8); LYMPHOCYTES # (AUTO) 0.9 /CMM (0.8-4.8); LYMPHOCYTES % (AUTO) 9.7 % (20.0-44.0); MEAN CORPUSCULAR HEMOGLOBIN 29 PG (26.0-33.0); MEAN CORPUSCULAR HGB CONC 33 g/dl (31.0-36.0); MEAN CORPUSCULAR VOLUME 87 fL (82-100); MONOCYTES # (AUTO) 0.7 /CMM (0.1-1.30); MONOCYTES % (AUTO) 7.8 % (2.0-12.0); NEUTROPHILS # (AUTO) 7.5 /CMM (1.8-8.9); PLATELET COUNT (AUTO) 481 /CMM (150-450); WHITE BLOOD COUNT (AUTO) 9.3 K/uL (4.3-11.0)
[2016-05-04 07:30] LABS: CALCIUM, SERUM 7.7 mg/dL (8.5-10.1); CREATININE 4.1 mg/dL (0.6-1.3); PHOSPHORUS 4.1 mg/dL (2.5-4.9); POTASSIUM 4.1 mmol/L (3.5-5.1)
[2016-05-04] MEDS: ALBUTEROL FS 2.5 MG/0.5 ML VIAL.NEB IH SCH ×3 (07:49→22:59)
[2016-05-04 08:00] VITALS: BP 116/51
[2016-05-04] MEDS: METOPROLOL TARTRATE 25 MG TABLET GT SCH ×2 (09:00→17:00)
[2016-05-04] MEDS: DOCUSATE SODIUM LIQ 100 MG/10 ML UDC GT SCH ×2 (09:00→17:00)
[2016-05-04] MEDS: VANCOMYCIN HCL 125 MG/2.5 ML ORAL.SUSP PO SCH ×4 (09:20→21:19)
[2016-05-04] MEDS: APIXABAN 2.5 MG TABLET PO SCH ×2 (09:20→17:28)
[2016-05-04] MEDS: PROSOURCE / PROSTAT (PYXIS) 30 ML UDC GT SCH (09:20)
[2016-05-04] MEDS: PANTOPRAZOLE 40 MG/PACK PACK GT SCH (09:21)
[2016-05-04] MEDS: FAMOTIDINE (20 MG) 20 MG TABLET GT SCH (09:21)
[2016-05-04] MEDS: LACTOBACILLUS RHAMNOSUS GG 1 EACH CAP.SPRINK GT SCH ×2 (09:21→17:27)
[2016-05-04] MEDS: FERROUS SULFATE (325 MG) 325 MG/TAB TABLET GT SCH ×2 (09:21→17:27)
[2016-05-04] MEDS: VIT B CMPLX 3/FA/VIT C/BIOTIN 1 TAB TABLET PO SCH (09:21)
[2016-05-04] MEDS: risperiDONE 0.25 MG TABLET PO SCH ×2 (09:21→17:27)
[2016-05-04] MEDS: LEVOTHYROXINE SODIUM 100 MCG TABLET GT SCH (09:21)
[2016-05-04] MEDS: ASCORBIC ACID 500 MG TABLET GT SCH ×2 (09:21→17:27)
[2016-05-04] MEDS: LamoTRIgine 25 MG TABLET GT SCH ×2 (09:21→17:27)
[2016-05-04] MEDS: ASPIRIN 81 MG TAB.CHEW GT SCH (09:23)
[2016-05-04] MEDS: AMIODARONE HCL 200 MG TABLET GT SCH (09:23)
[2016-05-04] MEDS: NYSTATIN CREAM 15 GM TUBE TP SCH ×2 (09:24→17:29)
[2016-05-04] MEDS: NYSTATIN TOP POWDER 15 GM BOTTLE TP SCH ×2 (09:24→17:29)
[2016-05-04] MEDS: BRINZOLAMIDE 1 % OPHTH SOLN 10 ML BOTTLE RIGHTEYE SCH ×3 (09:24→17:29)
[2016-05-04] MEDS: INSULIN DETEMIR 100 UNIT/ML CARTRIDGE SQ SCH ×2 (09:26→21:00)
[2016-05-04] MEDS ORDERED: SECONDARY IV SET 1 EA INFUS.SET MC ONE (11:15)
[2016-05-04] MEDS: FLUCONAZOLE IN NS 100 MG in PREMIX 1 EA IV SCH ×2 (11:23)
[2016-05-04] MEDS: MEROPENEM 500 MG in IV NS 0.9% 50 ML IV SCH (12:34)
[2016-05-04] MEDS: CALCITRIOL 0.25 MCG CAPSULE GT SCH (14:55)
[2016-05-04 16:00] VITALS: BP 109/58
[2016-05-04 20:00] VITALS: BP 109/55
[2016-05-04] MEDS: GABAPENTIN 100 MG CAPSULE GT SCH (21:26)
[2016-05-04] MEDS: ATORVASTATIN 10 MG TABLET GT SCH (21:26)
[2016-05-04] MEDS: MIRTAZAPINE 15 MG TABLET GT SCH (21:27)
[2016-05-04] MEDS: DONEPEZIL 5 MG TABLET GT SCH (21:27)
[2016-05-04] MEDS: TAMSULOSIN 0.4 MG CAP.SR.24H GT SCH (21:27)
[2016-05-04] MEDS: LATANOPROST EYE DROP 0.005% 2.5 ML BOTTLE RIGHTEYE SCH (21:43)
[2016-05-04 22:00] VITALS: BP 109/55
[2016-05-05 04:00] VITALS: BP 103/56
[2016-05-05] MEDS: RENAL NOVASOURCE 1,000 ML BOTTLE GT PRN (05:02)
[2016-05-05] MEDS: BLOOD SUGAR DIAGNOSTIC 1 EACH STRIP IN SCH ×3 (05:14→17:30)
[2016-05-05] MEDS: INSULIN REGULAR, HUMAN 100 UNIT/ML 3 ML VIAL SQ PRN ×3 (05:15→17:42)
[2016-05-05] MEDS: ALBUTEROL FS 2.5 MG/0.5 ML VIAL.NEB IH SCH ×2 (07:35→15:30)
[2016-05-05 08:00] VITALS: BP 123/75
[2016-05-05] MEDS: risperiDONE 0.25 MG TABLET PO SCH ×2 (08:39→17:18)
[2016-05-05] MEDS: VIT B CMPLX 3/FA/VIT C/BIOTIN 1 TAB TABLET PO SCH (08:41)
[2016-05-05] MEDS: METOPROLOL TARTRATE 25 MG TABLET GT SCH ×2 (08:41→17:17)
[2016-05-05] MEDS: DOCUSATE SODIUM LIQ 100 MG/10 ML UDC GT SCH ×2 (08:42→17:19)
[2016-05-05] MEDS: AMIODARONE HCL 200 MG TABLET GT SCH (08:42)
[2016-05-05] MEDS: FERROUS SULFATE (325 MG) 325 MG/TAB TABLET GT SCH ×2 (08:42→17:17)
[2016-05-05] MEDS: PROSOURCE / PROSTAT (PYXIS) 30 ML UDC GT SCH (08:42)
[2016-05-05] MEDS: LamoTRIgine 25 MG TABLET GT SCH ×2 (08:42→17:18)
[2016-05-05] MEDS: ASCORBIC ACID 500 MG TABLET GT SCH ×2 (08:42→17:18)
[2016-05-05] MEDS: APIXABAN 2.5 MG TABLET PO SCH ×2 (08:44→17:19)
[2016-05-05] MEDS: BRINZOLAMIDE 1 % OPHTH SOLN 10 ML BOTTLE RIGHTEYE SCH ×3 (08:46→17:18)
[2016-05-05] MEDS: NYSTATIN TOP POWDER 15 GM BOTTLE TP SCH ×2 (08:47→17:18)
[2016-05-05] MEDS: NYSTATIN CREAM 15 GM TUBE TP SCH ×2 (08:48→17:18)
[2016-05-05] MEDS: INSULIN DETEMIR 100 UNIT/ML CARTRIDGE SQ SCH (08:53)
[2016-05-05] MEDS: LACTOBACILLUS RHAMNOSUS GG 1 EACH CAP.SPRINK GT SCH ×2 (08:58→17:17)
[2016-05-05] MEDS: VANCOMYCIN HCL 125 MG/2.5 ML ORAL.SUSP PO SCH ×3 (08:58→17:18)
[2016-05-05] MEDS: ASPIRIN 81 MG TAB.CHEW GT SCH (08:58)
[2016-05-05] MEDS: LEVOTHYROXINE SODIUM 100 MCG TABLET GT SCH (08:59)
[2016-05-05] MEDS: FAMOTIDINE (20 MG) 20 MG TABLET GT SCH (09:17)
[2016-05-05 09:48] LABS: BASOPHILS % (AUTO) 0.1 % (0.0-2.0); EOSINOPHILS # (AUTO) 0.1 /CMM (0.0-0.7); HEMATOCRIT 26 % (33-45); HEMOGLOBIN 8.3 g/dL (11.5-14.8); LYMPHOCYTES # (AUTO) 0.9 /CMM (0.8-4.8); LYMPHOCYTES % (AUTO) 10.5 % (20.0-44.0); MEAN CORPUSCULAR HEMOGLOBIN 28 PG (26.0-33.0); MEAN CORPUSCULAR HGB CONC 32 g/dl (31.0-36.0); MEAN CORPUSCULAR VOLUME 87 fL (82-100); MONOCYTES # (AUTO) 0.8 /CMM (0.1-1.30); MONOCYTES % (AUTO) 9.3 % (2.0-12.0); NEUTROPHILS # (AUTO) 7.1 /CMM (1.8-8.9); NEUTROPHILS % (AUTO) 79.1 % (43.0-81.0); PLATELET COUNT (AUTO) 501 /CMM (150-450); RED BLOOD CELL COUNT(AUTO) 2.94 MIL/uL (4.0-5.2)
[2016-05-05 10:20] LABS: DIFF TOTAL % 100 %
[2016-05-05] MEDS: FLUCONAZOLE IN NS 100 MG in PREMIX 1 EA IV SCH ×2 (10:58)
[2016-05-05] MEDS ORDERED: FLU VACC QS 2016-17(36MOS+)/PF 0.5 ML DISP.SYRIN IM ONE (15:30)
[2016-05-05 17:45] VITALS: BP 133/65
== END 2016-05-05 18:40 | DRG 871 ==
LOC: ER 10:49 → TELE-TD 12:38 → ICU 20:45 → TELE1 04-25 18:52 → MEDSG1 04-26 13:17
PROVIDERS: ADMIT Internal Medicine; ATTEND Internal Medicine
PROC: 02HV33Z Insertion of Infusion Device into Superior Vena Cava, Percutaneous Approach (ICD-10-PCS; principal; 2016-04-24)
PROC: B548ZZA Ultrasonography of Superior Vena Cava, Guidance (ICD-10-PCS; 2016-04-24)
PROC: 5A1D60Z (ICD-10-PCS; 2016-04-24)
DX: A41.9 Sepsis, unspecified organism (principal); G92 Toxic encephalopathy; N18.6 End stage renal disease; J69.0 Pneumonitis due to inhalation of food and vomit; R53.2 Functional quadriplegia; I12.0 Hypertensive chronic kidney disease with stage 5 chronic kidney disease or end stage renal disease; E87.2 Acidosis; A04.7 Enterocolitis due to Clostridium difficile; B37.49 Other urogenital candidiasis; D68.59 Other primary thrombophilia; G93.1 Anoxic brain damage, not elsewhere classified; E11.22 Type 2 diabetes mellitus with diabetic chronic kidney disease; E03.9 Hypothyroidism, unspecified; F03.90 Unspecified dementia, unspecified severity, without behavioral disturbance, psychotic disturbance, mood disturbance, and anxiety; E78.5 Hyperlipidemia, unspecified; G40.909 Epilepsy, unspecified, not intractable, without status epilepticus; I48.0 Paroxysmal atrial fibrillation; Z86.73 Personal history of transient ischemic attack (TIA), and cerebral infarction without residual deficits; R65.20 Severe sepsis without septic shock; Z99.2 Dependence on renal dialysis; Z93.1 Gastrostomy status; F32.9 Major depressive disorder, single episode, unspecified; F41.9 Anxiety disorder, unspecified; Z74.01 Bed confinement status; Z87.01 Personal history of pneumonia (recurrent); M19.90 Unspecified osteoarthritis, unspecified site; K21.9 Gastro-esophageal reflux disease without esophagitis; J44.9 Chronic obstructive pulmonary disease, unspecified; R13.10 Dysphagia, unspecified; E11.40 Type 2 diabetes mellitus with diabetic neuropathy, unspecified; I95.9 Hypotension, unspecified; D63.8 Anemia in other chronic diseases classified elsewhere; E11.649 Type 2 diabetes mellitus with hypoglycemia without coma; E11.69 Type 2 diabetes mellitus with other specified complication; E83.39 Other disorders of phosphorus metabolism; E87.6 Hypokalemia; N31.9 Neuromuscular dysfunction of bladder, unspecified
CPT/HCPCS: 36415; 36600; 71010-TC; 80048-TC; 80053-TC; 80061-TC; 80076-TC; 80202-TC; 81000-TC; 82962-TC; 83605-TC; 83735-TC; 84100-TC; 84484-TC; 85025-TC; 85730-TC; 87040-TC; 87070-TC; 87081-TC; 87086-TC; 87400; 90935-TC; 92526; 92611-TC; 94640-TC; 94799-TC; A4216; A4606; A6253; J0360; J0692; J0885; J1450; J1815; J2185; J2543; J3370; J3490; J7030; J7040; J7042; J7050; J7060; Z7610

== ENCOUNTER 2016-08-13 18:49 | Inpatient (IN) | payer MEDICARE, OTHER ==
[~2016-08-13] VITALS: Ht 162.6 cm; Wt 72.6 kg
[~2016-08-13 18:49] MED LIST: ACET650S26 GT; ALBU2.5V13 IH; AMIN30LI4 GT; AMIO200T2 GT; APIX2.5T GT; ASCO500S2 GT; ASPI81TA2 GT; BISA10SU8 RC; BRIN8DRO RIGHTEYE; CALC1SOL2 GT; DOCU50LI GT; DONE5TAB3 GT; FAMO20TA8 GT; FERR220S2 GT; FOLI0.8T2 GT; GABA-532 GT; HYDR-3326 GT; INSU100V27 SQ; INSU100V7 SQ; LAMO25TA5 GT; LEVO200T8 GT; LORA1TAB GT; MAGN400O6 GT; MELA3TAB GT; METO25TA6 GT; MIRT15TA7 GT; NA P133E RC; PRAV20TA4 GT; RISP0.253 GT; SODI650T GT; TAMS-12 GT; TRAV5DRO RIGHTEYE; [UNRECOGNIZED DRUG - CODE] IART
--- NOTE | 2016-08-13 18:53 | NUR ---
MD HODGE AT
--- NOTE | 2016-08-13 18:55 | NUR ---
BIBRA FROM SNF DUE TO ABDOMINAL PAIN, 09/05, NON RADIATING. PATIENT IS AAO2, SERBIAN SPEAKIG ONLY. IN NO AUCTE DISTRESS, RESPIRATTION EVEN AND UNLABORED. SATING WELL ON ROOM AIR, NO NAUSEA AND VOMITTING. COMPALINT OF COSTIPATION, NO BOWEL MOVEMENT X 8 DAYS. NO ABDOMINAL DISTENTION NOTED. GOWEND AND PLACED PT ON TELE MONITOR. PENDING MD FREDERICK
--- NOTE | 2016-08-13 19:34 | NUR ---
PT TRANSPORTED TO RADIOLOGY FOR CT ABD/PELVIS.
[2016-08-13 19:38] LABS: BASOPHILS % (AUTO) 0.2 % (0.0-2.0); EOSINOPHILS % (AUTO) 0.2 % (0.0-6.0); HEMATOCRIT 40 % (33-45); HEMOGLOBIN 13.1 g/dL (11.5-14.8); LYMPHOCYTES % (AUTO) 10.1 % (20.0-44.0); MEAN CORPUSCULAR HEMOGLOBIN 27 PG (26.0-33.0); MEAN CORPUSCULAR HGB CONC 33 g/dl (31.0-36.0); MEAN CORPUSCULAR VOLUME 82 fL (82-100); MONOCYTES # (AUTO) 0.6 /CMM (0.1-1.30); MONOCYTES % (AUTO) 5.8 % (2.0-12.0); NEUTROPHILS # (AUTO) 8.7 /CMM (1.8-8.9); NEUTROPHILS % (AUTO) 83.7 % (43.0-81.0); PLATELET COUNT (AUTO) 288 /CMM (150-450); RDW COEFFICIENT OF VARIATION 15.9 (11.5-15.0); WHITE BLOOD COUNT (AUTO) 10.3 K/uL (4.3-11.0)
[2016-08-13] MEDS ORDERED: BRIM5DRO3 RIGHTEYE (19:39)
[2016-08-13] MEDS ORDERED: NUT.237L67 GT (19:39)
[2016-08-13] MEDS ORDERED: BLOO-668 IN (19:39)
[2016-08-13] MEDS ORDERED: INSU100V7 SQ (19:39)
[2016-08-13 19:40] LABS: CARBON DIOXIDE 24 mmol/L (21-32); CHLORIDE 97 mmol/L (98-107); CREATININE 2.5 mg/dL (0.6-1.3); GLUCOSE 171 mg/dL (74-106); POTASSIUM 3.8 mmol/L (3.5-5.1); SODIUM SERUM 137 mmol/L (136-145); UREA NITROGEN, BLOOD 16 mg/dL (7-18)
[2016-08-13 19:44] LABS: INR 0.99 (0.87-1.13); PROTHROMBIN TIME 10.3 SECS (9.5-12.7)
[2016-08-13 19:45] LABS: ALANINE AMINOTRANSFERASE 6 U/L (12-78); ALBUMIN 3.2 g/dL (3.4-5.0); ALKALINE PHOSPHATASE 136 U/L (46-116); ASPARTATE AMINOTRANSFERASE 23 U/L (15-37); BILIRUBIN,DIRECT 0.1 mg/dL (0.0-0.2); BILIRUBIN,TOTAL 0.5 mg/dL (0.2-1.0)
[2016-08-13 19:48] LABS: TROPONIN I < 0.017 ng/mL (0.00-0.056)
[2016-08-13 20:09] LABS: APPEARANCE,URINE Turbid (CLEAR); BILIRUBIN,URINE Negative (NEGATIVE); BLOOD, URINE Moderate Ery/uL (NEGATIVE); COLOR,URINE Yellow (YELLOW); KETONES,URINE Trace (NEGATIVE); LEUKOCYTE ESTERASE ,URINE Large (NEGATIVE); NITRITE, URINE Negative (NEGATIVE); PROTEIN,URINE >=300 mg/dl (NEGATIVE); UGLUCOSE Negative (NEGATIVE); UROBILINOGEN,URINE 0.2 EU/dL (0.2)
[2016-08-13 20:16] LABS: LACTIC ACID 2.4 mmol/L (0.4-2.0)
[2016-08-13 20:22] LABS: ADD URINE CULTURE YES; BACTERIA,URINE Many /HPF (None Seen); RBC,URINE 21-50 /HPF (0-2); SQUAMOUS EPITHELIAL CELL,UR Moderate /HPF (None Seen); WBC,URINE TOO NUMEROUS TO COUN /HPF (0-3)
--- NOTE | 2016-08-13 20:23 | NUR ---
PT SON AT BEDSIDE.
--- NOTE | 2016-08-13 20:37 | NUR ---
PANEL PAGED PER ER MD ORDER.
--- NOTE | 2016-08-13 20:46 | NUR ---
LA NENA ODONNELL TALKING TO DR. TRINH REGARDING PT ADMISSION.
[2016-08-13] MEDS ORDERED: PIPERACILLIN /TAZOBACTAM 2.25 G in IV D5W 50 ML IV ONE (21:00)
--- NOTE | 2016-08-13 21:18 | NUR ---
REPORT CALLED TO M/S MARIA LUISA JOSUE. WILL TRANSPORT PT TO M/S.
[2016-08-13] MEDS ORDERED: IV SET PRIMARY 1 EA INFUS.SET MC ONE (21:21)
[2016-08-13] MEDS ORDERED: PIPERACILLIN /TAZOBACTAM 3.375 G VIAL IV ONE (21:22)
[2016-08-13 21:30] VITALS: BP 128/87
[2016-08-13 21:36] VITALS: BP 123/87
--- NOTE | 2016-08-13 21:36 | NUR ---
MS RN NOTES RECEIVED PT FROM THE ER , PT IS AWAKE, A/O X 1. CONFUSED. VERBALLY RESPONSIVE IN DIVEHI. NO DISTRESS, NO SOB NOTED. GT IS INTACT AND PATENT. RCW HD CATH WITH INTACT DRESSING, NO BLEEDING AT THIS TIME. DENIES ANY PAIN OR DISCOMFORT AT THIS TIME. HOB ELEVATED FOR ASPIRATION PRECAUTION. FC IS INTACT AND PATENT DRAINING WITH THICK, CLOUDY URINE, NO HEMATURIA NOTED. IV SITE ON LAC INTACT AND PATENT. NO S/S OF INFILTRATION NOTED. SAFETY PRECAUTIONS OBSERVED. CALL LIGHT WITHIN REACH. WILL CONTINUE TO MONITOR.
[2016-08-13] MEDS ORDERED: IV NS 0.9% 1,000 ML IV PRN (21:59)
[2016-08-13] MEDS ORDERED: MAG HYDROX/AL HYDROX/SIMETH 30 ML UDC GT PRN (22:00)
[2016-08-13] MEDS ORDERED: HYDROCODONE/APAP 5/325MG 1 EACH TABLET GT PRN ×2 (22:00)
[2016-08-13] MEDS ORDERED: ACETAMINOPHEN 325 MG TABLET PO PRN (22:00)
[2016-08-13] MEDS ORDERED: BISACODYL SUPP (10 MG) 10 MG/SUPP.RECT SUPP.RECT RC PRN (22:00)
[2016-08-13] MEDS ORDERED: MAGNESIUM HYDROXIDE 30 ML UDC PO PRN (22:00)
[2016-08-13] MEDS ORDERED: NA PHOS,M-B/NA PHOS,DI-BA 1 EA ENEMA RC PRN (22:00)
[2016-08-13] MEDS ORDERED: ONDANSETRON HCL/PF 4 MG/2 ML VIAL IVP PRN (22:00)
[2016-08-13] MEDS ORDERED: PRAVASTATIN SODIUM 20 MG TABLET GT SCH (22:00)
[2016-08-13] MEDS ORDERED: LORAZEPAM 1 MG TABLET GT PRN (22:00)
[2016-08-13] MEDS ORDERED: NEPRO VAN 237 ML CAN GT SCH (22:00)
[2016-08-13] MEDS ORDERED: Medication Not On Formulary EA (Melatonin 3 MG) GT SCH (22:00)
[2016-08-13] MEDS ORDERED: MAGNESIUM HYDROXIDE 30 ML UDC GT PRN (22:00)
[2016-08-13] MEDS ORDERED: ACETAMINOPHEN 650 MG/20.3 ML UDC GT PRN (22:00)
[2016-08-13] MEDS: SODIUM BICARBONATE 650 MG TABLET GT SCH (22:00)
[2016-08-13] MEDS ORDERED: LACTULOSE 10 G/15 ML UDC (PYXIS) ONE (22:30)
[2016-08-13] MEDS ORDERED: DONEPEZIL 5 MG TABLET ONE (22:42)
[2016-08-13] MEDS ORDERED: GABAPENTIN 100 MG CAPSULE ONE (22:43)
[2016-08-13] MEDS ORDERED: METOPROLOL TARTRATE 25 MG TABLET ONE (22:43)
[2016-08-13] MEDS ORDERED: MIRTAZAPINE 15 MG TABLET ONE (22:45)
[2016-08-13] MEDS ORDERED: CEFTRIAXONE 1 G VIAL ONE (22:47)
[2016-08-13] MEDS ORDERED: SECONDARY IV SET 1 EA INFUS.SET MC ONE (22:47)
[2016-08-13] MEDS ORDERED: IV D5W 50 ML IV ONE (22:47)
[2016-08-13] MEDS ORDERED: IV NS 0.9% 1,000 ML BAG IV PRN ×3 (23:00→23:30)
[2016-08-13] MEDS ORDERED: RENAL NOVASOURCE 1,000 ML BOTTLE ONE (23:07)
[2016-08-13] MEDS ORDERED: IV NS 0.9% 1,000 ML ONE (23:29)
[2016-08-13] MEDS ORDERED: IV SET PRIMARY PUMP SET 1 EA INFUS.SET MC ONE (23:30)
[2016-08-13] MEDS: IV NS 0.9% 1,000 ML IV PRN (23:35)
[2016-08-13] MEDS: LACTULOSE 10 G/15 ML UDC (PYXIS) PO SCH (23:39)
[2016-08-13] MEDS: GABAPENTIN 100 MG CAPSULE GT SCH (23:40)
[2016-08-13] MEDS: DONEPEZIL 5 MG TABLET GT SCH (23:40)
[2016-08-13] MEDS: MIRTAZAPINE 15 MG TABLET GT SCH (23:40)
[2016-08-13] MEDS: METOPROLOL TARTRATE 25 MG TABLET GT SCH (23:40)
[2016-08-13] MEDS: CEFTRIAXONE 1 G in IV D5W 50 ML IV SCH (23:45)
[2016-08-13] MEDS: BLOOD SUGAR DIAGNOSTIC 1 EACH STRIP IN SCH (23:55)
[2016-08-14] MEDS ORDERED: LORAZEPAM 1 MG TABLET ONE (00:23)
--- NOTE | 2016-08-14 00:30 | NUR ---
PT WITH EPISODES OF PULLING GT AT THE FACILITY PER ED, BACK HAND. PT'S SON REQUESTING TO PUT ABDOMINAL BINDER. PT NOTED WITH PULLING OF GT, EVEN THOUGH CONSTANT REMINDER WAS GIVEN , INFORMED DR. TRINH, PER MD, PT OK TO HAVE ABDOMINAL BINDER NOTED AND CARRIED OUT.
--- NOTE | 2016-08-14 01:01 | NUR ---
AMEND: DISREGARD BS : 95 , BELONGS TO OTHER PATIENT.
--- NOTE | 2016-08-14 01:30 | NUR ---
CLARIFIED GTF ORDER WITH DR. GAYATHRI RECINOS NEW ORDERS NOTED AND CARRIED OUT.
[2016-08-14] MEDS ORDERED: HYDROCODONE/APAP 5/325MG 1 EACH TABLET ONE (02:57)
[2016-08-14] MEDS ORDERED: LACTULOSE 10 G/15 ML UDC (PYXIS) ONE ×2 (02:58→06:25)
[2016-08-14] MEDS: LACTULOSE 10 G/15 ML UDC (PYXIS) PO SCH ×3 (03:03→08:47)
[2016-08-14] MEDS ORDERED: RENAL NOVASOURCE 1,000 ML BOTTLE GT PRN (05:00)
[2016-08-14] MEDS: BLOOD SUGAR DIAGNOSTIC 1 EACH STRIP IN SCH ×4 (05:52→23:16)
[2016-08-14] MEDS ORDERED: Medication Not On Formulary EA (Insulin Glargine,Hum.rec.anlog (Lantus) 20 UNIT) SQ SCH (06:00)
[2016-08-14 06:33] LABS: BASOPHILS % (AUTO) 0.1 % (0.0-2.0); HEMATOCRIT 40 % (33-45); LYMPHOCYTES # (AUTO) 0.9 /CMM (0.8-4.8); LYMPHOCYTES % (AUTO) 7.7 % (20.0-44.0); MEAN CORPUSCULAR HEMOGLOBIN 27 PG (26.0-33.0); MEAN CORPUSCULAR HGB CONC 32 g/dl (31.0-36.0); MEAN CORPUSCULAR VOLUME 83 fL (82-100); MONOCYTES # (AUTO) 0.7 /CMM (0.1-1.30); MONOCYTES % (AUTO) 5.8 % (2.0-12.0); NEUTROPHILS # (AUTO) 10.1 /CMM (1.8-8.9); NEUTROPHILS % (AUTO) 86.4 % (43.0-81.0); PLATELET COUNT (AUTO) 295 /CMM (150-450); RDW COEFFICIENT OF VARIATION 17.1 (11.5-15.0); RED BLOOD CELL COUNT(AUTO) 4.85 MIL/uL (4.0-5.2); WHITE BLOOD COUNT (AUTO) 11.7 K/uL (4.3-11.0)
--- NOTE | 2016-08-14 06:46 | NUR ---
MS RN NOTES PT IN BED, AWAKE, A/O X 1. CONFUSED WITH PERIODS OF RESTLESSNESS, PULLING GT AND IV. VERBALLY RESPONSIVE IN LAO. NO DISTRESS, NO SOB NOTED. GT IS INTACT AND PATENT. NOVASOURCE RENAL GTF MARILU WELL. NO RESIDUAL NOTED. PT NOTED WITH LATRICE FARRELL AMT OF BM , DR. TRINH AWARE AND PER MD TO CONT LACTULOSE 30 ML Q 4H. RCW HD CATH WITH INTACT DRESSING, NO BLEEDING AT THIS TIME. DENIES ANY PAIN OR DISCOMFORT AT THIS TIME. HOB ELEVATED FOR ASPIRATION PRECAUTION. FC IS INTACT AND PATENT DRAINING WITH YELLOW URINE, NO HEMATURIA NOTED. NO S/S OF HYPERGLYCEMIA NOTED. IV SITE ON LAC INTACT AND PATENT. NO S/S OF INFILTRATION NOTED. SAFETY PRECAUTIONS OBSERVED. CALL LIGHT WITHIN REACH. WILL ENDORSE TO NEXT SHIFT FOR ISABELLE.
[2016-08-14 07:01] LABS: ALBUMIN 3.1 g/dL (3.4-5.0); BILIRUBIN,TOTAL 0.4 mg/dL (0.2-1.0); CALCIUM, SERUM 8.7 mg/dL (8.5-10.1); CREATININE 3.1 mg/dL (0.6-1.3); MAGNESIUM 2.1 mg/dL (1.8-2.4); PHOSPHORUS 4.2 mg/dL (2.5-4.9); POTASSIUM 3.4 mmol/L (3.5-5.1); TOTAL PROTEIN, SERUM 8.8 g/dL (6.4-8.2)
--- NOTE | 2016-08-14 07:30 | NUR ---
RN OPEN NOTES RECEIVED REPORT FROM GLAZING SUPERINTENDENT NURSE. PATIENT IS IN BED, AWAKE. NO SIGN AND SYMPTOMS OF DISTRESS. IV SITE IS INTACT AND PATENT. WILL CONTINUE TO ASSESS AND MONITOR PATIENT THROUGH OUT MY SHIFT.
[2016-08-14 08:00] VITALS: BP 141/91
[2016-08-14] MEDS: PANTOPRAZOLE 40 MG VIAL IV SCH (08:45)
[2016-08-14] MEDS: PROSOURCE / PROSTAT (PYXIS) 30 ML UDC GT SCH ×2 (08:45→16:56)
[2016-08-14] MEDS: DOCUSATE SODIUM LIQ 100 MG/10 ML UDC GT SCH ×2 (08:45→16:53)
[2016-08-14] MEDS: METOPROLOL TARTRATE 25 MG TABLET GT SCH ×2 (08:46→16:56)
[2016-08-14] MEDS: ASCORBIC ACID 500 MG TABLET GT SCH ×2 (08:46→16:56)
[2016-08-14] MEDS: AMIODARONE HCL 200 MG TABLET GT SCH (08:46)
[2016-08-14] MEDS: ASPIRIN 81 MG TAB.CHEW GT SCH (08:46)
--- NOTE | 2016-08-14 09:00 | NUR ---
PER NURSE PRACTITIONER ESTELITA, PATIENT TO BE KEPT ON NPO TILL NUTRITIONAL EVALUATION COMPLETED.
--- NOTE | 2016-08-14 09:00 | NUR ---
PATIENT HAD A BOWEL MOVEMENT, LACTOLOSE HELD PER MD ORDER
[2016-08-14] MEDS ORDERED: POTASSIUM CHLORIDE 20 MEQ POWDER PACKET GT ONE (10:30)
[2016-08-14] MEDS: APIXABAN 2.5 MG TABLET GT SCH ×2 (11:06→16:57)
[2016-08-14] MEDS: BRIMONIDINE TARTRATE OPHT SOLN 5 ML BOTTLE RIGHTEYE SCH ×3 (11:06→16:56)
[2016-08-14] MEDS: LEVOTHYROXINE SODIUM 100 MCG TABLET PO SCH (11:06)
--- NOTE | 2016-08-14 13:09 | NUR ---
SPOKE TO NURSE PRACTITIONER ESTELITA REGARDING THE BLOOD SUGAR LEVEL. NEW ORDERS RECEIVED AND CARRIED OUT
[2016-08-14] MEDS ORDERED: DEXTROSE 50%-WATER 50 ML DISP.SYRIN IV PRN (13:30)
[2016-08-14] MEDS: INSULIN REGULAR, HUMAN 100 UNIT/ML 3 ML VIAL SQ PRN ×3 (14:10→23:20)
[2016-08-14] MEDS: SODIUM BICARBONATE 650 MG TABLET GT SCH (15:41)
[2016-08-14 16:00] VITALS: BP 119/76
--- NOTE | 2016-08-14 18:36 | NUR ---
RN CLOSING NOTES PATIENT IS ALERT AND ORIENTED TO NAME. PATIENT IS VERY CONFUSED. NO SIGNS AND SYMPTOMS OF DISTRESS. IV SITE IS INTACT AND PATENT, CURRENTLY RUNNING NS @60ML/HR. POTASSIUM REPLACED. DIALYSIS 08/15 7AM. PENDING FNS CONSULT FOR PO FOOD. SEE REFER TO BLOOD SUGAR NOTES. WILL ENDORSE TO COT ASSEMBLER NURSE.
--- NOTE | 2016-08-14 19:35 | NUR ---
MSRN FULLY AWAKE REFUSED TO BE ASSESSED. UNCOOPERATIVE OF THIS TIME. BUSH TO GRAVITY, OUTPUT MONITORED. NO SOB, MS STATUS. TO CONTINUE. FALL PRECAUTIONS OBSERVED.
[2016-08-14 20:00] VITALS: BP 102/64
--- NOTE | 2016-08-14 20:40 | NUR ---
MSRN PARTIALLY BATHED, PLEASANTLY CONFUSED. INSISTED TO HAVE A DRINK OF SODA. HAD SMALL BM, SKIN INTACT. REPOSITIONED FOR COMFORT, REALITY ORIENTATION, DOES NOT SEEM TO FOLLOW. GT WITH ABDOMINAL BINDER IN PLACE TO PREVENT PATIENT FROM PUULINE LINES. RIGHT CW PERMACATH DRESSING INTACT SECURELY TAPED.
[2016-08-14] MEDS: GABAPENTIN 100 MG CAPSULE GT SCH (21:17)
[2016-08-14] MEDS: MIRTAZAPINE 15 MG TABLET GT SCH (21:17)
[2016-08-14] MEDS: ATORVASTATIN 10 MG TABLET PO SCH (21:18)
[2016-08-14] MEDS: DONEPEZIL 5 MG TABLET GT SCH (21:18)
[2016-08-14] MEDS: CEFTRIAXONE 1 G in IV D5W 50 ML IV SCH (21:19)
[2016-08-14] MEDS ORDERED: SECONDARY IV SET 1 EA INFUS.SET MC ONE (21:24)
--- NOTE | 2016-08-14 21:48 | NUR ---
MSRN DUE MEDS ADMINISTERED VIA GT, FEEDINGS TOLERATED, NO RESIDUALS. HOB 40 DEGREES AT ALL TIMES.CLOSELY WATCHED.
[2016-08-14] MEDS: INSULIN DETEMIR 100 UNIT/ML CARTRIDGE SQ SCH (23:19)
--- NOTE | 2016-08-14 23:30 | NUR ---
MSRN BS WAS 203 COVERED WITH REG INSULIN SQ AND LEVEMIR ORDERED. GT FEEDINGS CONTINUED
[2016-08-15] MEDS: IV NS 0.9% 1,000 ML IV PRN (00:56)
--- NOTE | 2016-08-15 03:27 | NUR ---
MSRN AWAKE MOST OF THE TIME, TALKING TO SELF.
[2016-08-15] MEDS: BLOOD SUGAR DIAGNOSTIC 1 EACH STRIP IN SCH ×3 (06:00→17:05)
--- NOTE | 2016-08-15 06:25 | NUR ---
MSRN BS WAS 248 COVERED WITH 4 UNITS REG INS SQ PER SLIDING SCALE. BUSH 100 CC OUT.
[2016-08-15 06:30] LABS: BASOPHILS % (AUTO) 0.1 % (0.0-2.0); EOSINOPHILS # (AUTO) 0.1 /CMM (0.0-0.7); EOSINOPHILS % (AUTO) 0.4 % (0.0-6.0); HEMATOCRIT 38 % (33-45); HEMOGLOBIN 11.9 g/dL (11.5-14.8); LYMPHOCYTES # (AUTO) 1.3 /CMM (0.8-4.8); LYMPHOCYTES % (AUTO) 10.1 % (20.0-44.0); MEAN CORPUSCULAR HEMOGLOBIN 26 PG (26.0-33.0); MEAN CORPUSCULAR HGB CONC 31 g/dl (31.0-36.0); MEAN CORPUSCULAR VOLUME 83 fL (82-100); MONOCYTES # (AUTO) 0.9 /CMM (0.1-1.30); MONOCYTES % (AUTO) 6.5 % (2.0-12.0); NEUTROPHILS % (AUTO) 82.9 % (43.0-81.0); PLATELET COUNT (AUTO) 251 /CMM (150-450); RED BLOOD CELL COUNT(AUTO) 4.59 MIL/uL (4.0-5.2); WHITE BLOOD COUNT (AUTO) 13.3 K/uL (4.3-11.0)
[2016-08-15 07:01] LABS: CALCIUM, SERUM 7.9 mg/dL (8.5-10.1); CREATININE 3.3 mg/dL (0.6-1.3); MAGNESIUM 2.1 mg/dL (1.8-2.4); POTASSIUM 3.5 mmol/L (3.5-5.1)
[2016-08-15] MEDS: INSULIN REGULAR, HUMAN 100 UNIT/ML 3 ML VIAL SQ PRN ×3 (07:02→17:06)
--- NOTE | 2016-08-15 07:28 | NUR ---
RN OPEN NOTES RECEIVED REPORT FROM DEAF/HARD OF HEARING SPECIALIST NURSE. PATIENT IS IN BED, AWAKE AND ORIENTED TO NAME ONLY. NO SIGNS AND SYMPTOMS OF DISTRESS. IV SITE IS INTACT AND PATENT. GT TUBE FEEDING IS AT 30ML.HR. WILL CONTINUE TO MONITOR AND ASSESS PATIENT THROUGHOUT MY SHIFT.
[2016-08-15 08:00] VITALS: BP 136/83
[2016-08-15] MEDS: PANTOPRAZOLE 40 MG VIAL IV SCH (08:29)
[2016-08-15] MEDS: PROSOURCE / PROSTAT (PYXIS) 30 ML UDC GT SCH ×2 (08:29→18:04)
[2016-08-15] MEDS: BRIMONIDINE TARTRATE OPHT SOLN 5 ML BOTTLE RIGHTEYE SCH ×3 (08:29→17:04)
[2016-08-15] MEDS: SODIUM BICARBONATE 650 MG TABLET GT SCH (08:29)
[2016-08-15] MEDS: AMIODARONE HCL 200 MG TABLET GT SCH (08:30)
[2016-08-15] MEDS: ASPIRIN 81 MG TAB.CHEW GT SCH (08:30)
[2016-08-15] MEDS: METOPROLOL TARTRATE 25 MG TABLET GT SCH ×2 (08:30→17:00)
[2016-08-15] MEDS: APIXABAN 2.5 MG TABLET GT SCH ×2 (08:31→18:04)
[2016-08-15] MEDS: DOCUSATE SODIUM LIQ 100 MG/10 ML UDC GT SCH ×2 (08:31→18:03)
[2016-08-15] MEDS: LEVOTHYROXINE SODIUM 100 MCG TABLET PO SCH (08:31)
[2016-08-15] MEDS: ASCORBIC ACID 500 MG TABLET GT SCH ×2 (08:32→18:03)
--- NOTE | 2016-08-15 08:32 | NUR ---
PATIENT IS SABINA FOR DIALYSIS TODAY. BLOOD PRESSURE MEDS AND VITAMIN HELD.
[2016-08-15] MEDS ORDERED: SECONDARY IV SET 1 EA INFUS.SET MC ONE (10:16)
[2016-08-15] MEDS: MEROPENEM 500 MG in IV NS 0.9% 50 ML IV SCH (11:03)
[2016-08-15] MEDS: RENAL NOVASOURCE 1,000 ML BOTTLE GT PRN (11:23)
--- NOTE | 2016-08-15 15:43 | NUR ---
DIALYSIS NURSE AT BEDSIDE. Addendum: 08/15/16 at 1759 by EPIFANIO HERMOSILLO RN DIALYSIS FINISHED. 1000ML REMOVED
[2016-08-15 16:44] VITALS: BP 159/81
--- NOTE | 2016-08-15 18:04 | NUR ---
BLOOD PRESSURE MEDS HELD DUE TO DIALYSIS. ALL OTHER MEDS RESUMED
--- NOTE | 2016-08-15 18:46 | NUR ---
RN CLOSING NOTES PATIENT IS ALERT AND ORIENTED TO NAME. PATIENT IS VERY CONFUSED. NO SIGNS AND SYMPTOMS OF DISTRESS. IV SITE IS INTACT AND PATENT, HL. DIALYSIS COMPLETED TODAY, 1000 ML OUTPUT. PENDING FNS CONSULT AND SWALLOW EVAL FOR PO FOOD. WILL ENDORSE TO GEAR TESTER NURSE.
--- NOTE | 2016-08-15 19:30 | NUR ---
RN NOTES: RECEIVED LYING COMFORTABLY IN BED, ALERT AND ORIENTED BY HER OWN NAME,WITH PERIODS OF CONFUSION. LATVIAN SPEAKING,LAC G#18 PATENT AND INTACT,ON BUSH CATH ATTACHED TO URO BAG DRAINING INTO YELLOWISH COLORED URINE AT 50CC LEVEL,PEG TUBE IN SITE,ON NOVASOURCE FEEDING AT 3O ML/HR,ON ACCUCHECK Q6H,RIGHT UPPER CHEST WALL-PERMICATH IN PLACE. CALL LIGHT WITHIN EASY REACH, BED LOW AND LOCKED, FALL SAFETY AND ASPIRATION PRECAUTION OBSERVE.ON NPO.
[2016-08-15 20:00] VITALS: BP_SYST 131; BP_SYST 99; BP_DIAS 59; BP_DIAS 76
[2016-08-15] MEDS: DONEPEZIL 5 MG TABLET GT SCH (21:49)
[2016-08-15] MEDS: ATORVASTATIN 10 MG TABLET PO SCH (21:50)
[2016-08-15] MEDS: MIRTAZAPINE 15 MG TABLET GT SCH (21:50)
[2016-08-15] MEDS: GABAPENTIN 100 MG CAPSULE GT SCH (21:50)
--- NOTE | 2016-08-15 22:00 | NUR ---
RN NOTES: BLOOD SUGAR CHECK -310, LEVEMIR DOSE GIVEN OBSERVED FOR SIGN OF HYPER AND HYPOGLYCEMIA,KEPT IN SEMI FOWLERS POSITION.CALL LIGHT WITH IN EASY REACH.
[2016-08-15] MEDS: INSULIN DETEMIR 100 UNIT/ML CARTRIDGE SQ SCH (22:20)
[2016-08-16] MEDS: INSULIN REGULAR, HUMAN 100 UNIT/ML 3 ML VIAL SQ PRN ×4 (00:32→17:24)
--- NOTE | 2016-08-16 00:35 | NUR ---
RN NOTES: BLOOD SUGAR CHECKED 273,INSULIN GIVEN PER SCALE,CONTINUE TO OK MCKEON.
[2016-08-16] MEDS: BLOOD SUGAR DIAGNOSTIC 1 EACH STRIP IN SCH ×4 (05:52→17:18)
--- NOTE | 2016-08-16 05:54 | NUR ---
RN NOTES: BLOOD SUGAR CHECKED-352,INSULIN GIVEN PER SCALE.WILL CONTINUE TO MONITOR FOR SIGN OF HYPER AND HYPOGLYCEMIA.
[2016-08-16 06:34] LABS: BASOPHILS % (AUTO) 0.1 % (0.0-2.0); EOSINOPHILS # (AUTO) 0.1 /CMM (0.0-0.7); EOSINOPHILS % (AUTO) 1.3 % (0.0-6.0); HEMATOCRIT 37 % (33-45); HEMOGLOBIN 11.6 g/dL (11.5-14.8); LYMPHOCYTES # (AUTO) 1.1 /CMM (0.8-4.8); LYMPHOCYTES % (AUTO) 11.3 % (20.0-44.0); MEAN CORPUSCULAR HEMOGLOBIN 26 PG (26.0-33.0); MEAN CORPUSCULAR HGB CONC 32 g/dl (31.0-36.0); MEAN CORPUSCULAR VOLUME 83 fL (82-100); MONOCYTES # (AUTO) 0.6 /CMM (0.1-1.30); MONOCYTES % (AUTO) 6.3 % (2.0-12.0); NEUTROPHILS # (AUTO) 8.1 /CMM (1.8-8.9); PLATELET COUNT (AUTO) 255 /CMM (150-450); RED BLOOD CELL COUNT(AUTO) 4.44 MIL/uL (4.0-5.2); WHITE BLOOD COUNT (AUTO) 10.1 K/uL (4.3-11.0)
--- NOTE | 2016-08-16 06:45 | NUR ---
RN NOTES: TURNING AND REPOSITIONING DONE,KEPT ON CLOSE WATCH,ENDORSED TO NEXT SHIFT FOR CONTINUITY OF CARE,PATIENT WAS CALM AND SLEEPING THE ENTIRE SHIFT NO SIGN OR RESTLESSNESS NOTED.BED LOW AND LOCKED,CALL LIGHT WITHIN EASY REACH.SR UPX3.
[2016-08-16 06:59] LABS: CALCIUM, SERUM 7.9 mg/dL (8.5-10.1); CREATININE 2.8 mg/dL (0.6-1.3)
--- NOTE | 2016-08-16 07:17 | NUR ---
RN OPEN NOTES RECEIVED REPORT FROM SYSTEMS ARCHITECT NURSE. PATIENT IS IN BED, AWAKE AND ORIENTED TO NAME ONLY. NO SIGNS AND SYMPTOMS OF DISTRESS. IV SITE IS INTACT AND PATENT. GT TUBE FEEDING IS AT 30ML/HR. WILL CONTINUE TO MONITOR AND ASSESS PATIENT THROUGHOUT MY SHIFT.
--- NOTE | 2016-08-16 07:41 | NUR ---
LAB CALLED TO REPORT BLOOD SUGAR OF 363. QUALITY PROCESS ENGINEER RN ADMINISTERED 10 UNITS OF INSULIN PER PROTOCOL.
[2016-08-16] MEDS: PANTOPRAZOLE 40 MG VIAL IV SCH (07:58)
[2016-08-16 08:00] VITALS: BP 98/64
[2016-08-16] MEDS: DOCUSATE SODIUM LIQ 100 MG/10 ML UDC GT SCH ×2 (08:02→17:17)
[2016-08-16] MEDS: ASCORBIC ACID 500 MG TABLET GT SCH ×2 (08:02→17:17)
[2016-08-16] MEDS: SODIUM BICARBONATE 650 MG TABLET GT SCH (08:02)
[2016-08-16] MEDS: BRIMONIDINE TARTRATE OPHT SOLN 5 ML BOTTLE RIGHTEYE SCH ×3 (08:02→17:17)
[2016-08-16] MEDS: APIXABAN 2.5 MG TABLET GT SCH ×2 (08:02→17:45)
[2016-08-16] MEDS: ASPIRIN 81 MG TAB.CHEW GT SCH (08:02)
[2016-08-16] MEDS: PROSOURCE / PROSTAT (PYXIS) 30 ML UDC GT SCH ×2 (08:02→17:17)
[2016-08-16] MEDS: LEVOTHYROXINE SODIUM 100 MCG TABLET PO SCH (08:03)
[2016-08-16] MEDS: MEROPENEM 500 MG in IV NS 0.9% 50 ML IV SCH (08:03)
[2016-08-16] MEDS: AMIODARONE HCL 200 MG TABLET GT SCH (08:09)
[2016-08-16] MEDS: METOPROLOL TARTRATE 25 MG TABLET GT SCH ×2 (08:10→17:17)
--- NOTE | 2016-08-16 09:10 | NUR ---
ESTELITA GOLD NIB GRINDER MADE AWARE OF PATIENT ELEVATED BLOOD SUGAR
[2016-08-16] MEDS ORDERED: DEXTROSE 50%-WATER 50 ML DISP.SYRIN IV PRN (09:30)
[2016-08-16] MEDS ORDERED: POTASSIUM CHLORIDE 20 MEQ TAB.PRT.SR PO ONE (11:30)
[2016-08-16] MEDS ORDERED: POTASSIUM CHLORIDE 20 MEQ POWDER PACKET GT ONE (12:30)
[2016-08-16 16:00] VITALS: BP 125/77
[2016-08-16] MEDS: RENAL NOVASOURCE 1,000 ML BOTTLE GT PRN (17:38)
--- NOTE | 2016-08-16 18:38 | NUR ---
RN CLOSING NOTES PATIENT IS ALERT AND ORIENTED TO NAME. PATIENT IS VERY CONFUSED. NO SIGNS AND SYMPTOMS OF DISTRESS. IV SITE IS INTACT AND PATENT, HL. PENDING FNS CONSULT AND SWALLOW EVAL FOR PO FOOD. WILL ENDORSE TO LOT WORKER RN
--- NOTE | 2016-08-16 19:30 | NUR ---
MS/RN OPENING NOTES PT ASLEEP, EASILY AROUSABLE, A/O TO NAME. ON ROOM AIR WITH NO DISTRESS NOTED. NO FACIAL GRIMACING OR OTHER SIGNS OF PAIN NOTED. RESTING COMFORTABLY. BUSH IN PLACE DRAINING WELL. IV TO LAC PATENT AND INTACT. GT FEEDING RUNNING NOVASOURCE AT 30ML/HR ORDERED. PT FOR SWALLOW EVAL AND DIETARY EVAL TOMORROW. BED IN LOW/LOCKED POSITION WITH BED ALARM ON. BED RAILS UPX3. WILL CONTINUE TO MONITOR
[2016-08-16 19:52] VITALS: BP 132/71
[2016-08-16 20:00] VITALS: BP 132/71
[2016-08-16] MEDS: DONEPEZIL 5 MG TABLET GT SCH (22:06)
[2016-08-16] MEDS: ATORVASTATIN 10 MG TABLET PO SCH (22:06)
[2016-08-16] MEDS: MIRTAZAPINE 15 MG TABLET GT SCH (22:06)
[2016-08-16] MEDS: GABAPENTIN 100 MG CAPSULE GT SCH (22:06)
[2016-08-16] MEDS: INSULIN DETEMIR 100 UNIT/ML CARTRIDGE SQ SCH (22:15)
--- NOTE | 2016-08-16 22:15 | NUR ---
MS/RN NOTES BLOOD JYWDV=381, ADMINISTERED 7 UNITS OF LEVEMIR SCHEDULED. WILL CONTINUE TO MONITOR
[2016-08-17] MEDS: BLOOD SUGAR DIAGNOSTIC 1 EACH STRIP IN SCH ×3 (00:21→12:24)
[2016-08-17] MEDS: INSULIN REGULAR, HUMAN 100 UNIT/ML 3 ML VIAL SQ PRN ×3 (00:26→12:33)
--- NOTE | 2016-08-17 00:55 | NUR ---
MS/RN NOTES BLOOD HTODV=487, ADMINISTERED 12 UNITS OF INSULIN PER SLIDING SCALE. WILL CONTINUE TO MONITOR
[2016-08-17] MEDS: LEVOTHYROXINE SODIUM 100 MCG TABLET PO SCH ×2 (06:38→08:58)
--- NOTE | 2016-08-17 06:59 | NUR ---
MS/RN CLOSING NOTES PT ASLEEP, AROUSABLE TO NAME/TOUCH. ON ROOM AIR WITH NO DISTRESS NOTED. BREATHING EVEN AND UNLABORED. A/OX1. MAORI SPEAKING. IV TO LAC PATENT AND INTACT. GT FEEDING RUNNING NOVASOURACE AT 30ML/HR ORDERED. NO RESIDUAL THROUGHOUT SHIFT. ALL DUE MEDS ADMINISTERED. BUSH IN PLACE AND DRAINING WELL. BED IN LOW/LOCKED POSITION, CALL LIGHT IN REACH AND BED RAILS UP. TURNED/REPOSITIONED PT Q2H AND PRN. OFFLOADED EXTREMITIES. WILL ENDORSE TO AM SHIFT ISABELLE.
[2016-08-17 07:13] LABS: BASOPHILS % (AUTO) 0.4 % (0.0-2.0); EOSINOPHILS # (AUTO) 0.2 /CMM (0.0-0.7); EOSINOPHILS % (AUTO) 2.2 % (0.0-6.0); HEMATOCRIT 37 % (33-45); HEMOGLOBIN 11.8 g/dL (11.5-14.8); LYMPHOCYTES # (AUTO) 1.3 /CMM (0.8-4.8); LYMPHOCYTES % (AUTO) 13.6 % (20.0-44.0); MEAN CORPUSCULAR HEMOGLOBIN 27 PG (26.0-33.0); MEAN CORPUSCULAR HGB CONC 32 g/dl (31.0-36.0); MEAN CORPUSCULAR VOLUME 83 fL (82-100); MONOCYTES # (AUTO) 0.7 /CMM (0.1-1.30); MONOCYTES % (AUTO) 7.5 % (2.0-12.0); NEUTROPHILS # (AUTO) 7.2 /CMM (1.8-8.9); NEUTROPHILS % (AUTO) 76.3 % (43.0-81.0); PLATELET COUNT (AUTO) 251 /CMM (150-450); RDW COEFFICIENT OF VARIATION 16.7 (11.5-15.0); RED BLOOD CELL COUNT(AUTO) 4.43 MIL/uL (4.0-5.2); WHITE BLOOD COUNT (AUTO) 9.4 K/uL (4.3-11.0)
--- NOTE | 2016-08-17 07:20 | NUR ---
RN OPEN NOTES RECEIVED REPORT FROM WIRELESS RETAIL MANAGER NURSE. WILL CONTINUE TO MONITOR AND ASSESS PATIENT CONDITION
[2016-08-17 07:42] LABS: CALCIUM, SERUM 7.9 mg/dL (8.5-10.1); CREATININE 3.4 mg/dL (0.6-1.3); POTASSIUM 3.6 mmol/L (3.5-5.1)
[2016-08-17 08:00] VITALS: BP 138/83
[2016-08-17] MEDS ORDERED: MERO1VIA3 IV (08:39)
[2016-08-17] MEDS: DOCUSATE SODIUM LIQ 100 MG/10 ML UDC GT SCH (08:57)
[2016-08-17] MEDS: BRIMONIDINE TARTRATE OPHT SOLN 5 ML BOTTLE RIGHTEYE SCH ×2 (08:57→12:32)
[2016-08-17] MEDS: PROSOURCE / PROSTAT (PYXIS) 30 ML UDC GT SCH (08:57)
[2016-08-17] MEDS: PANTOPRAZOLE 40 MG VIAL IV SCH (08:57)
[2016-08-17] MEDS: ASCORBIC ACID 500 MG TABLET GT SCH (08:58)
[2016-08-17] MEDS: ASPIRIN 81 MG TAB.CHEW GT SCH (08:58)
[2016-08-17] MEDS: METOPROLOL TARTRATE 25 MG TABLET GT SCH (08:58)
[2016-08-17 08:59] VITALS: BP 138/83
[2016-08-17] MEDS: AMIODARONE HCL 200 MG TABLET GT SCH (08:59)
--- NOTE | 2016-08-17 09:15 | NUR ---
SPOKE WITH DR BARNEY REGARDING DISCHARGE ORDER. PERIPHERAL LINE TO STAY, BUSH TO BE REMOVED.
--- NOTE | 2016-08-17 10:15 | NUR ---
ELIQUIS AND SODIUM BICARB NOT IN THE PATIENT'S CASSETTE. PHARMACY NOTIFIED AND [facility]YS AID THEY WILL SEND IT UP
[2016-08-17] MEDS: MEROPENEM 500 MG in IV NS 0.9% 50 ML IV SCH (10:17)
--- NOTE | 2016-08-17 13:00 | NUR ---
ELECTRONIC TEST TECHNICIAN NOTES PATIENT'S DISCHARGE ORDER RECEIVED AND CARRIED OUT. REPORT WAS GIVEN TO [facility] MAR[facility] LUISA FERRERA AT 1200PM. NO SIGNS AND SYMPTOMS OF DISTRESS. DENIED PAIN. PATIENT WILL CONTINUE ANTIBIOTIC AT THE HALFWAY, LEFT AC 18G IS INTACT AND PATENT. PATIENT TRANSPORTED TO NURSING FACILITY BY AN AMBULANCE AND 2 gang mower operator. BUSH DISCONTINUED. ID BAND REMOVED. BLOOD PRESSURE 129/78 AT TIME OF DISCHARGE. NO PERSONAL BELONGING WITH PATIENT AT TIME OF DISCHARGE. PICTURES WERE TAKEN LAST NIGHT AND PLACED IN THE CHART.
== END 2016-08-17 13:15 | DRG 871 ==
LOC: ER 18:58 → MED 21:00
PROVIDERS: ADMIT Internal Medicine; ATTEND Internal Medicine
PROC: 5A1D00Z (ICD-10-PCS; principal; 2016-08-15)
DX: A41.9 Sepsis, unspecified organism (principal); N18.6 End stage renal disease; R53.2 Functional quadriplegia; G93.40 Encephalopathy, unspecified; N39.0 Urinary tract infection, site not specified; E87.2 Acidosis; I12.0 Hypertensive chronic kidney disease with stage 5 chronic kidney disease or end stage renal disease; D63.8 Anemia in other chronic diseases classified elsewhere; E11.40 Type 2 diabetes mellitus with diabetic neuropathy, unspecified; I25.10 Atherosclerotic heart disease of native coronary artery without angina pectoris; K21.9 Gastro-esophageal reflux disease without esophagitis; I48.91 Unspecified atrial fibrillation; Z99.2 Dependence on renal dialysis; Z86.73 Personal history of transient ischemic attack (TIA), and cerebral infarction without residual deficits; G40.909 Epilepsy, unspecified, not intractable, without status epilepticus; R65.20 Severe sepsis without septic shock; E03.9 Hypothyroidism, unspecified; E78.5 Hyperlipidemia, unspecified; E87.6 Hypokalemia; J44.9 Chronic obstructive pulmonary disease, unspecified; Z87.01 Personal history of pneumonia (recurrent); Z87.440 Personal history of urinary (tract) infections; Z90.11 Acquired absence of right breast and nipple; Z93.1 Gastrostomy status; R13.10 Dysphagia, unspecified; M19.90 Unspecified osteoarthritis, unspecified site; K56.41 Fecal impaction; B96.20 Unspecified Escherichia coli [E. coli] as the cause of diseases classified elsewhere; Z16.12 Extended spectrum beta lactamase (ESBL) resistance; E11.22 Type 2 diabetes mellitus with diabetic chronic kidney disease; F09 Unspecified mental disorder due to known physiological condition; Z79.899 Other long term (current) drug therapy
CPT/HCPCS: 36415; 71010-TC; 80048-TC; 80053-TC; 80061-TC; 80076-TC; 81000-TC; 82962-TC; 83605-TC; 83735-TC; 84100-TC; 84484-TC; 85025-TC; 85730-TC; 87040-TC; 87081-TC; 87086-TC; 87186-TC; 92611-TC; A4216; A4606; C9113; J0696; J1815; J2185; J2543; J7030; J7060; Z7610

== ENCOUNTER 2016-09-23 19:59 | Emergency (ER) | payer MEDICARE, OTHER ==
[~2016-09-23] VITALS: Ht 157.5 cm; Wt 63.5 kg
[~2016-09-23 19:59] MED LIST changes: -ALBU2.5V13 IH; +BLOO-668 IN; +BRIM5DRO3 RIGHTEYE; -BRIN8DRO RIGHTEYE; -CALC1SOL2 GT; -DOCU50LI GT; -FAMO20TA8 GT; -FERR220S2 GT; -FOLI0.8T2 GT; -LAMO25TA5 GT; +MERO1VIA3 IV; +NUT.237L67 GT; -RISP0.253 GT; -TAMS-12 GT; -TRAV5DRO RIGHTEYE
--- NOTE | 2016-09-23 20:10 | NUR ---
TO BED 6 A 80 YO FEMALE PT BIBA FROM [facility] FOR G-TUBE REPLACEMENT, PATIENT GT IN PLACE F15. VSS. NO S/S OF ACUTE DISTRESS. ASPIRATION PRECAUTIONS MAINTAINED. AWAITING FOR ER MD FREDERICK.
--- NOTE | 2016-09-23 20:20 | NUR ---
DR HODGE AT [facility] AT BEDSIDE FOR GT REPLACEMENT.
--- NOTE | 2016-09-23 20:25 | NUR ---
GTUBE F15 REPLACED, APPLIED WITH DRESSINGS, TAPED SECURELY. PATIENT MARILU PROCEDURE WELL. AWAITING FOR [facility] TO COMFIRM PLACEMENT. Addendum: 09/23/16 at 2041 by JAKOB F16 GASTRIC TUBE NEWLY IN PLACE.
[2016-09-23] MEDS ORDERED: DIATR MEGLU/DIATRIZOATE SODIUM 30 ML BOTTLE (GASTROGRAPHIN) ONE (20:29)
--- NOTE | 2016-09-23 20:56 | NUR ---
Report given to Kim KEYS in [facility].
--- NOTE | 2016-09-23 21:35 | NUR ---
CALLED [facility] FOR TRANSPORT BACK TO [facility], ETA 30 MIN
--- NOTE | 2016-09-23 22:13 | NUR ---
Patient picked up by 2 emt's, no incident noted. vss.
[2016-09-23 22:15] VITALS: BP 107/59
== END 2016-09-23 22:16 ==
LOC: ER 20:02
DX: K94.23 Gastrostomy malfunction (principal); E05.90 Thyrotoxicosis, unspecified without thyrotoxic crisis or storm; E78.5 Hyperlipidemia, unspecified; G40.909 Epilepsy, unspecified, not intractable, without status epilepticus; G93.40 Encephalopathy, unspecified; I48.91 Unspecified atrial fibrillation; G82.50 Quadriplegia, unspecified; I12.0 Hypertensive chronic kidney disease with stage 5 chronic kidney disease or end stage renal disease; N18.6 End stage renal disease; K21.9 Gastro-esophageal reflux disease without esophagitis; R13.10 Dysphagia, unspecified; Z79.82 Long term (current) use of aspirin; Z79.4 Long term (current) use of insulin; Z85.3 Personal history of malignant neoplasm of breast; Z90.11 Acquired absence of right breast and nipple; Z99.2 Dependence on renal dialysis; Z90.89 Acquired absence of other organs
CPT/HCPCS: 43760; 74000; 99284; A4217; A4606; A6403; Q9963; Z7610

== ENCOUNTER 2016-10-07 14:49 | Inpatient (IN) | payer MEDICARE, OTHER ==
[~2016-10-07] VITALS: Ht 167.6 cm; Wt 72.6 kg
[~2016-10-07 14:49] MED LIST changes: -ACET650S26 GT; +ACET650S26 PO; -APIX2.5T GT; +APIX2.5T PO; -ASCO500S2 GT; +ASCO500S2 PO; -ASPI81TA2 GT; +ASPI81TA2 PR; -DONE5TAB3 GT; +DONE5TAB3 PO; -GABA-532 GT; +GABA-532 PO; -LEVO200T8 GT; +LEVO200T8 PO; -LORA1TAB GT; +LORA1TAB PO; -MAGN400O6 GT; +MAGN400O6 PO; -MELA3TAB GT; +MELA3TAB PO; -METO25TA6 GT; +METO25TA6 PO; -MIRT15TA7 GT; +MIRT15TA7 PO; -PRAV20TA4 GT; +PRAV20TA4 PO
--- NOTE | 2016-10-07 14:49 | NUR ---
BELLE 102 FROM [facility] C/O SEIZURE, NO TRAUMA. HX OF SZ. NAD NOTED. PT TURKMEN SPEAKER, AO X1, VSS. RR EVEN AND UNLABORED. PT PLACED IN GOWN AND MONITOR. MD AT BEDSIDE FOR EVAL.
[2016-10-07] MEDS ORDERED: LORAZEPAM INJ 2 MG/ML VIAL IV ONE (15:00)
[2016-10-07 15:11] LABS: BASOPHILS # (AUTO) 0.1 /CMM (0.0-0.2); BASOPHILS % (AUTO) 0.8 % (0.0-2.0); EOSINOPHILS % (AUTO) 0.6 % (0.0-6.0); HEMATOCRIT 23 % (33-45); HEMOGLOBIN 7.4 g/dL (11.5-14.8); LYMPHOCYTES # (AUTO) 1.3 /CMM (0.8-4.8); LYMPHOCYTES % (AUTO) 17.6 % (20.0-44.0); MEAN CORPUSCULAR HEMOGLOBIN 29 PG (26.0-33.0); MEAN CORPUSCULAR HGB CONC 33 g/dl (31.0-36.0); MEAN CORPUSCULAR VOLUME 89 fL (82-100); MONOCYTES # (AUTO) 0.6 /CMM (0.1-1.30); MONOCYTES % (AUTO) 7.9 % (2.0-12.0); NEUTROPHILS # (AUTO) 5.3 /CMM (1.8-8.9); NEUTROPHILS % (AUTO) 73.1 % (43.0-81.0); PLATELET COUNT (AUTO) 291 /CMM (150-450); RDW COEFFICIENT OF VARIATION 20.4 (11.5-15.0); RED BLOOD CELL COUNT(AUTO) 2.57 MIL/uL (4.0-5.2); WHITE BLOOD COUNT (AUTO) 7.2 K/uL (4.3-11.0)
[2016-10-07] MEDS ORDERED: LORAZEPAM INJ 2 MG/ML VIAL ONE (15:13)
[2016-10-07 15:22] LABS: CALCIUM, SERUM 8.6 mg/dL (8.5-10.1); CARBON DIOXIDE 25 mmol/L (21-32); CHLORIDE 99 mmol/L (98-107); CREATININE 3.7 mg/dL (0.6-1.3); GLUCOSE 262 mg/dL (74-106); POTASSIUM 4.3 mmol/L (3.5-5.1); SODIUM SERUM 137 mmol/L (136-145); UREA NITROGEN, BLOOD 43 mg/dL (7-18)
[2016-10-07 15:23] LABS: APPEARANCE,URINE SL CLOUDY (CLEAR); BILIRUBIN,URINE NEGATIVE (NEGATIVE); BLOOD, URINE 2+ Ery/uL (NEGATIVE); COLOR,URINE YELLOW (YELLOW); KETONES,URINE NEGATIVE (NEGATIVE); LEUKOCYTE ESTERASE ,URINE 3+ (NEGATIVE); NITRITE, URINE NEGATIVE (NEGATIVE); PROTEIN,URINE 1+ mg/dl (NEGATIVE); UGLUCOSE NEGATIVE (NEGATIVE); UROBILINOGEN,URINE 0.2 EU/dL (0.2)
[2016-10-07 15:27] LABS: ALANINE AMINOTRANSFERASE 16 U/L (12-78); ALBUMIN 3.2 g/dL (3.4-5.0); ALKALINE PHOSPHATASE 78 U/L (46-116); ASPARTATE AMINOTRANSFERASE 28 U/L (15-37); BILIRUBIN,DIRECT 0.1 mg/dL (0.0-0.2); BILIRUBIN,TOTAL 0.3 mg/dL (0.2-1.0); TOTAL PROTEIN, SERUM 7.4 g/dL (6.4-8.2)
[2016-10-07 15:29] LABS: TROPONIN I < 0.017 ng/mL (0.00-0.056)
[2016-10-07 15:31] LABS: BACTERIA,URINE Few /HPF (None Seen); SQUAMOUS EPITHELIAL CELL,UR Few /HPF (None Seen); WBC,URINE 81-100 /HPF (0-3)
[2016-10-07 15:32] LABS: INR 0.96 (0.87-1.13); PROTHROMBIN TIME 10.3 SECS (9.5-12.7)
[2016-10-07] MEDS ORDERED: IV NS 0.9% 500 ML IV ONE (15:37)
[2016-10-07] MEDS ORDERED: CEFTRIAXONE 1GM BAG (ER ONLY) 50 ML IV ONE (15:37)
[2016-10-07] MEDS ORDERED: IV SET PRIMARY 1 EA INFUS.SET MC ONE (15:37)
--- NOTE | 2016-10-07 15:39 | NUR ---
PT'S SON RENETTA DAVIS CONTACT NUMBER-
--- NOTE | 2016-10-07 15:42 | NUR ---
EPIC PAGED, DR.SIMONA Curran WARRANTY CLERK
--- NOTE | 2016-10-07 15:42 | NUR ---
CALLED NURSING SUP. FOR TELE BED
--- NOTE | 2016-10-07 15:48 | NUR ---
MEDICATIONS GIVEN ORDERED.
[2016-10-07] MEDS ORDERED: CEFTRIAXONE 1GM BAG (ER ONLY) 1 GM/50 ML PIGGYBACK IV ONE (16:00)
[2016-10-07] MEDS ORDERED: PANTOPRAZOLE 80 MG in IV NS 0.9% 500 ML IV ONE (16:00)
[2016-10-07] MEDS ORDERED: IV NS 0.9% 500 ML BAG IV ONE (16:00)
[2016-10-07] MEDS ORDERED: IV SET PRIMARY PUMP SET 1 EA INFUS.SET MC ONE ×2 (16:08→18:17)
[2016-10-07] MEDS ORDERED: LACT10SO PO (16:26)
[2016-10-07] MEDS ORDERED: ONDA4TAB5 PO (16:26)
--- NOTE | 2016-10-07 16:26 | NUR ---
REPORT GIVEN TO CARMELINA GLASS FOR CONTINUITY OF CARE.
[2016-10-07] MEDS ORDERED: FOLI0.8T2 PO (16:36)
--- NOTE | 2016-10-07 16:45 | NUR ---
MEDICAL TECH NOTES RECEIVED PT FROM E.R. STAFF [facility]IA [facility], ASSISTED TO BED, MADE COMFORTABLE, PT IS AWAKE, ALERT TO SELF, VERBALLY RESPONSIVE, NO COMPLAINT OF PAIN, NOT IN DISTRESS, TOLERATING ROOM AIR WELL, DIALYSIS CATH IN PLACE, NO BLEEDING NOTED, PT WITH GTUBE, NO S/S OF INFECTION OR DISCHARGE AT GT SITE, ROOM SET UP ORIENTATION PROVIDED TO PT, FAMILY VERBALIZED UNDERSTANDING, CALL LIGHT PLACED WITHIN REACH.
[2016-10-07] MEDS ORDERED: ONDANSETRON HCL/PF 4 MG/2 ML VIAL IVP PRN (17:00)
[2016-10-07] MEDS ORDERED: ACETAMINOPHEN 325 MG TABLET PO PRN (17:00)
[2016-10-07] MEDS ORDERED: MORPHINE SULFATE INJ 4 MG/ML DISP.SYRIN IV PRN (17:00)
[2016-10-07] MEDS ORDERED: IV NS 0.9% 1,000 ML BAG IV ONE (17:00)
[2016-10-07 17:12] LABS: IRON, SERUM 153 ug/dl (50-175); TOTAL IRON BINDING CAPACITY 309 ug/dl (250-450)
[2016-10-07] MEDS ORDERED: MAGNESIUM HYDROXIDE 30 ML UDC PO PRN (17:30)
[2016-10-07] MEDS ORDERED: PANTOPRAZOLE 80 MG in IV NS 0.9% 500 ML IV PRN (17:30)
[2016-10-07] MEDS ORDERED: BISACODYL SUPP (10 MG) 10 MG/SUPP.RECT SUPP.RECT RC PRN (17:30)
[2016-10-07] MEDS ORDERED: HYDROCODONE/APAP 5/325MG 1 EACH TABLET GT PRN ×2 (17:30)
[2016-10-07] MEDS ORDERED: LORAZEPAM 1 MG TABLET PO PRN (17:30)
[2016-10-07] MEDS ORDERED: BLOOD SUGAR DIAGNOSTIC 1 EACH STRIP IN SCH (17:30)
[2016-10-07] MEDS ORDERED: DEXTROSE 50%-WATER 50 ML DISP.SYRIN IV PRN (17:30)
[2016-10-07] MEDS ORDERED: NA PHOS,M-B/NA PHOS,DI-BA 1 EA ENEMA RC PRN (17:30)
--- NOTE | 2016-10-07 18:11 | NUR ---
RT PT IS AWAKE AND ALERT WITH FAMILY BY BEDSIDE. PT DOES NOT SHOW ANY SIGNS OF RESPIRATORY DISTRESS AND SpO2 97% ON ROOM AIR. EXPLAINED ABG PROCEDURE TO PT AND FAMILY. PT AND FAMILY ARE REFUSING ABG AT THIS TIME. MARIA LUISA HOLLINGSWORTH NOTIFIED AND AWARE.
[2016-10-07 18:24] VITALS: BP 132/73
[2016-10-07 18:26] LABS: RETICULOCYTE COUNT 2.7 % (0.6-2.5)
[2016-10-07 18:31] LABS: URIC ACID 4.5 mg/dL (2.6-7.2)
[2016-10-07] MEDS: BLOOD SUGAR DIAGNOSTIC 1 EACH STRIP IN SCH (18:43)
--- NOTE | 2016-10-07 19:00 | NUR ---
BICYCLE REPAIR TECHNICIAN NOTES PT IN BED, AWAKE, NOT IN PAIN OR DISTRESS, IV FLUIDS INFUSING WELL, SKIN ASSESSMENT DONE AND DOCUMENTED, ASSISTED WITH TURNING AND REPOSITIONING, PLAN OF CARE DISCUSSED WITH PT AND FAMILY, VERBALIZED UNDERSTANDING, ALL NEEDS ATTENDED.
[2016-10-07 20:00] VITALS: BP 144/86
[2016-10-07] MEDS ORDERED: BLOOD IV SET 1 EA INFUS.SET MC ONE (21:19)
[2016-10-07] MEDS ORDERED: IV NS 0.9% 250 ML IV ONE (21:19)
[2016-10-07 21:44] VITALS: BP 144/86
--- NOTE | 2016-10-07 21:44 | NUR ---
CELL TENDER NOTES 1ST UNIT PRBC STARTED. VSS. AFEBRILE. WILL CONTINUE TO MONITOR.
[2016-10-07] MEDS: DONEPEZIL 5 MG TABLET PO SCH (21:54)
[2016-10-07] MEDS: GABAPENTIN 100 MG CAPSULE PO SCH (21:54)
[2016-10-07] MEDS: MIRTAZAPINE 15 MG TABLET PO SCH (21:55)
[2016-10-07 22:00] VITALS: BP 133/89
--- NOTE | 2016-10-07 22:00 | NUR ---
ENGINEER STEAM NOTES 1ST UNIT PRBC INFUSING WELL. NO S/SX OF TRANSFUSION REACTION NOTED. WILL CONTINUE TO MONITOR.
[2016-10-08] VITALS (9 sets, daily range): BP systolic 100–144; BP diastolic 60–97
[2016-10-08] MEDS: BLOOD SUGAR DIAGNOSTIC 1 EACH STRIP IN SCH ×4 (00:18→19:26)
--- NOTE | 2016-10-08 00:25 | NUR ---
PIT AND AUXILIARIES SUPERVISOR NOTES 1ST UNIT PRBC COMPLETED. NO S/SX OF TRANSFUSION REACTION NOTED. WILL CONTINUE TO MONITOR.
--- NOTE | 2016-10-08 00:38 | NUR ---
SQUEEGEE TENDER NOTES 2ND UNIT PRBC STARTED. VSS. AFEBRILE. WILL CONTINUE TO MONITOR.
--- NOTE | 2016-10-08 00:53 | NUR ---
AUDIOVISUAL TECHNICIAN NOTES 2ND UNIT PRBC INFUSING WELL. NO S/SX OF TRANSFUSION REACTION NOTED. WILL CONTINUE TO MONITOR.
--- NOTE | 2016-10-08 04:00 | NUR ---
DRYING MACHINE OPERATOR PACKAGE YARNS NOTES 2ND UNIT PRBC COMPLETED. NO S/SX OF TRANSFUSION REACTION NOTED. WILL CONTINUE TO MONITOR.
--- NOTE | 2016-10-08 06:20 | NUR ---
DATABASE PROGRAMMER ANALYST NOTES AWAKE & RESPONSIVE. NOT IN ANY DISTRESS. NO SOB NOTED. DENIES ANY PAIN OR DISCOMFORT AT THIS TIME. WITH IV-HL PATENT & INTACT. CALL LIGHT WITHIN REACH. BED IN LOWEST POSITION. SR UP X 3 FOR SAFETY WITH BED ALARM ON FOR SAFETY. WILL ENDORSE TO NEXT SHIFT. Addendum: 10/08/16 at 0623 by ABY REARDON RN ON TELE SR @ 84
[2016-10-08] MEDS: INSULIN REGULAR, HUMAN 100 UNIT/ML 3 ML VIAL SQ PRN (06:49)
[2016-10-08 07:26] LABS: BASOPHILS % (AUTO) 0.3 % (0.0-2.0); EOSINOPHILS # (AUTO) 0.1 /CMM (0.0-0.7); EOSINOPHILS % (AUTO) 1.6 % (0.0-6.0); HEMATOCRIT 33 % (33-45); HEMOGLOBIN 10.9 g/dL (11.5-14.8); LYMPHOCYTES # (AUTO) 0.9 /CMM (0.8-4.8); LYMPHOCYTES % (AUTO) 17.3 % (20.0-44.0); MEAN CORPUSCULAR HEMOGLOBIN 30 PG (26.0-33.0); MEAN CORPUSCULAR HGB CONC 34 g/dl (31.0-36.0); MEAN CORPUSCULAR VOLUME 88 fL (82-100); MONOCYTES # (AUTO) 0.5 /CMM (0.1-1.30); MONOCYTES % (AUTO) 9.9 % (2.0-12.0); NEUTROPHILS # (AUTO) 3.6 /CMM (1.8-8.9); NEUTROPHILS % (AUTO) 70.9 % (43.0-81.0); PLATELET COUNT (AUTO) 213 /CMM (150-450); RDW COEFFICIENT OF VARIATION 18.2 (11.5-15.0)
--- NOTE | 2016-10-08 07:27 | NUR ---
ARSON AND BOMB INVESTIGATOR NOTES RECEIVED PT RESTING IN BED AWAKE AND ORIENTED X1, VERBALLY RESPONSIVE. NO FORM OF DISTRESS/DISCOMFORT NOTED. NO S/S OF PAIN AT THIS TIME. RESPIRATIONS EVEN AND UNLABORED ON ROOM AIR. PER TELE MONITOR SINUS RHYTHM WITH HR OF 80. PATIENT NPO AT THIS TIME WITH GTUBE IN PLACE, MEDICATIONS TO BE GIVEN VIA GTUBE ONLY. SAFETY MEASURES RENDERED, CALL LIGHT PLACED WITHIN REACH. WILL CONTINUE TO MONITOR.
[2016-10-08 07:46] LABS: ALANINE AMINOTRANSFERASE 15 U/L (12-78); ALBUMIN 2.9 g/dL (3.4-5.0); ALKALINE PHOSPHATASE 70 U/L (46-116); ASPARTATE AMINOTRANSFERASE 22 U/L (15-37); BILIRUBIN,TOTAL 0.3 mg/dL (0.2-1.0); CARBON DIOXIDE 26 mmol/L (21-32); CHLORIDE 108 mmol/L (98-107); CREATININE 3.6 mg/dL (0.6-1.3); GLUCOSE 158 mg/dL (74-106); SODIUM SERUM 143 mmol/L (136-145); TOTAL PROTEIN, SERUM 6.8 g/dL (6.4-8.2); UREA NITROGEN, BLOOD 43 mg/dL (7-18)
[2016-10-08 07:55] LABS: CREATINE KINASE MB 1.5 ng/mL (0-3.6)
[2016-10-08 07:56] LABS: INR 0.93 (0.87-1.13); PROTHROMBIN TIME 9.9 SECS (9.5-12.7)
--- NOTE | 2016-10-08 08:22 | NUR ---
CHARGE NOTE: DC TELEMETRY PER DR. TAVAREZ.
[2016-10-08] MEDS ORDERED: PANTOPRAZOLE 40 MG VIAL IV SCH (09:00)
[2016-10-08] MEDS: LEVOTHYROXINE SODIUM 100 MCG TABLET PO SCH (09:25)
[2016-10-08] MEDS: METOPROLOL TARTRATE 25 MG TABLET PO SCH ×2 (09:26→16:52)
[2016-10-08] MEDS: AMIODARONE HCL 200 MG TABLET GT SCH (09:26)
[2016-10-08 10:44] LABS: MAGNESIUM 2.1 mg/dL (1.8-2.4)
[2016-10-08] MEDS ORDERED: IV SET PRIMARY PUMP SET 1 EA INFUS.SET MC ONE ×2 (10:56→14:41)
--- NOTE | 2016-10-08 11:21 | NUR ---
MS/RN NOTES PATIENTS MORNING MEDS GIVEN VIA G-TUBE, KEPT NPO PER PHYSICIANS ORDERS, CLEANED AND REPOSITIONED ASSISTED BY BORDEREAU CLERK.
[2016-10-08] MEDS: PANTOPRAZOLE 80 MG in IV NS 0.9% 500 ML IV PRN ×2 (11:56→19:32)
--- NOTE | 2016-10-08 11:57 | NUR ---
MS/RN NOTES STARTED PROTONIX IV DRIP AT 50CC/HR CONTINUOUS PER PHYSICIAN ORDERS.
--- NOTE | 2016-10-08 12:20 | NUR ---
MS/RN NOTES 1200 BLOOD SUGAR 86 MG/DL. NO COVERAGE REQUIRED PER PROTOCOL. PATIENT NPO DUE TO PENDING PROCEDURE. MONITOR PATIENT FOR S/S OF HYPO/HYPERGLYCEMIA. WILL CONTINUE TO MONITOR.
[2016-10-08] MEDS ORDERED: SECONDARY IV SET 1 EA INFUS.SET MC ONE (14:41)
[2016-10-08] MEDS: IV D5/0.45 NACL 1,000 ML IV SCH (14:46)
[2016-10-08] MEDS: CEFTRIAXONE 1 G in IV D5W 50 ML IV SCH (16:23)
--- NOTE | 2016-10-08 17:01 | NUR ---
MS/RN NOTES PATIENT NOTED TO BE SLEEPY AND LETHARGIC, DIAPHORETIC. AROUSED BY TACTILE STIMULI. BLOOD PRESSURE AND SUGAR CHECKED. BS OF 112MG/DL, BP OF 100/64, AFABRILE. VITAL SIGNS STABLE. DAUGHTER AT BEDSIDE. IV D5 1/2 NS INFUSING AT 75CC/HR. WILL CONTINUE TO MONITOR PT ACCORDINGLY AND CLOSELY.
--- NOTE | 2016-10-08 18:46 | NUR ---
MS/RN NOTES PATIENT SLEEPING AT THIS TIME, ALL DUE MEDS GIVEN, ALL FLUIDS INFUSING WELL TOLERATED. PATIENT KEPT CLEAN AND DRY. SKIN CARE DONE, REPOSITIONED EVERY 2 HOURS. SAFETY MEASURES RENDERED. ALL NEEDS MET AND ATTENDED. NO SIGNIFICANT CHANGES NOTED. PATIENT KEPT NPO HOWEVER D5 FLUIDS INFUSING. BLOOD SUGAR AND VITAL SIGNS WNL. DAUGHTER AT BEDSIDE THROUGHOUT THE DAY. WILL ENDORSE CARE TO DIRECTORY CARRIER FOR ISABELLE.
[2016-10-08] MEDS: MIRTAZAPINE 15 MG TABLET PO SCH (21:37)
[2016-10-08] MEDS: GABAPENTIN 100 MG CAPSULE PO SCH (21:38)
[2016-10-08] MEDS: DONEPEZIL 5 MG TABLET PO SCH (21:38)
[2016-10-09] MEDS: BLOOD SUGAR DIAGNOSTIC 1 EACH STRIP IN SCH ×5 (01:58→23:54)
[2016-10-09] MEDS: IV D5/0.45 NACL 1,000 ML IV SCH ×2 (02:54→16:35)
[2016-10-09] MEDS: PANTOPRAZOLE 80 MG in IV NS 0.9% 500 ML IV PRN (06:04)
--- NOTE | 2016-10-09 06:40 | NUR ---
MS RN NOTES AWAKE & RESPONSIVE. NOT IN ANY DISTRESS. NO SOB NOTED. DENIES ANY PAIN OR DISCOMFORT AT THIS TIME. WITH IVF INFUSING WELL. AM CARE DONE. MONITORED ACCORDINGLY. CALL LIGHT WITHIN REACH. BED IN LOWEST POSITION. SR UP X 3 FOR SAFETY WITH BED ALARM ON FOR SAFETY. WILL ENDORSE TO NEXT SHIFT.
[2016-10-09 07:13] LABS: BASOPHILS % (AUTO) 0.2 % (0.0-2.0); EOSINOPHILS # (AUTO) 0.3 /CMM (0.0-0.7); EOSINOPHILS % (AUTO) 5.6 % (0.0-6.0); HEMATOCRIT 31 % (33-45); HEMOGLOBIN 10.4 g/dL (11.5-14.8); LYMPHOCYTES # (AUTO) 1.1 /CMM (0.8-4.8); LYMPHOCYTES % (AUTO) 20.8 % (20.0-44.0); MEAN CORPUSCULAR HEMOGLOBIN 30 PG (26.0-33.0); MEAN CORPUSCULAR HGB CONC 34 g/dl (31.0-36.0); MEAN CORPUSCULAR VOLUME 88 fL (82-100); MONOCYTES # (AUTO) 0.3 /CMM (0.1-1.30); MONOCYTES % (AUTO) 6.1 % (2.0-12.0); NEUTROPHILS # (AUTO) 3.5 /CMM (1.8-8.9); NEUTROPHILS % (AUTO) 67.3 % (43.0-81.0); PLATELET COUNT (AUTO) 209 /CMM (150-450); RDW COEFFICIENT OF VARIATION 18.5 (11.5-15.0); RED BLOOD CELL COUNT(AUTO) 3.53 MIL/uL (4.0-5.2); WHITE BLOOD COUNT (AUTO) 5.3 K/uL (4.3-11.0)
[2016-10-09] MEDS: LEVOTHYROXINE SODIUM 100 MCG TABLET PO SCH (07:30)
--- NOTE | 2016-10-09 07:30 | NUR ---
RN OPENING NOTES PT. IS IN BED SLEEPING, OPENS EYES AND RESPONSIVE, A&OX1, ISRAELI SPEAKING, AND LEGALLY BLIND. PT. IS ON NPO DUE TO EGD SCHEDULED TODAY. NO SOB, BREATHING ON ROOM AIR UNLABORED. NO S/S OF DISTRESS. IV PROTONIX DRIP RUNNING AT 50 ML/HR, AND IV FLUIDS RUNNING AT 75 ML/HR ON RIGHT WRIST. PT. IS SCHEDULED FOR HEMODIALYSIS TODAY, AND HAS A RIGHT CHEST WALL CATHETER. BED IS IN LOW POSITION, 3 CARE ANALYST RAILS UP FOR SAFETY, AND CALL LIGHT IS WITHIN REACH. WILL CONTINUE TO ASSESS AND MONITOR.
[2016-10-09 07:53] LABS: CALCIUM, SERUM 7.8 mg/dL (8.5-10.1); CARBON DIOXIDE 23 mmol/L (21-32); CHLORIDE 109 mmol/L (98-107); CREATININE 3.6 mg/dL (0.6-1.3); GLUCOSE 172 mg/dL (74-106); POTASSIUM 4.4 mmol/L (3.5-5.1); SODIUM SERUM 139 mmol/L (136-145); UREA NITROGEN, BLOOD 42 mg/dL (7-18)
[2016-10-09 08:00] VITALS: BP 123/72
[2016-10-09] MEDS: METOPROLOL TARTRATE 25 MG TABLET PO SCH ×2 (08:40→17:00)
[2016-10-09] MEDS: AMIODARONE HCL 200 MG TABLET GT SCH (08:40)
[2016-10-09] MEDS ORDERED: SECONDARY IV SET 1 EA INFUS.SET MC ONE ×2 (09:45→16:17)
[2016-10-09] MEDS ORDERED: MICAFUNGIN SODIUM 50 MG in IV NS 0.9% 100 ML IV SCH (10:00)
[2016-10-09] MEDS ORDERED: IV SET PRIMARY PUMP SET 1 EA INFUS.SET MC ONE (10:04)
--- NOTE | 2016-10-09 11:18 | NUR ---
RN NOTES PT. LEFT ROOM PT. LEFT ROOM FOR EGD PROCEDURE. IV FLUIDS STOPPED. BLOOD SUGAR CHECKED 159 MG/DL.
--- NOTE | 2016-10-09 12:12 | NUR ---
RN NOTES ACCUCHECK NOT ADMINISTERED DUE TO PT. IN EGD PROCEDURE.
--- NOTE | 2016-10-09 13:15 | NUR ---
RN NOTES PT. RETURNED TO ROOM PT. RETURNED TO SAME ROOM AFTER EGD PROCEDURE. PT. BP WAS 125/75, PULSE 64, RR 16, PULSE OXYGEN 99%.
[2016-10-09] MEDS: INSULIN REGULAR, HUMAN 100 UNIT/ML 3 ML VIAL SQ PRN ×3 (13:42→23:55)
--- NOTE | 2016-10-09 13:48 | NUR ---
RN NOTES PT.'S BLOOD SUGAR WAS 137 MG/DL POST PROCEDURE.
[2016-10-09] MEDS ORDERED: ANESTHESIA TRAY IN PYXIS 1 EA TRAY MC ONE (14:45)
[2016-10-09 16:00] VITALS: BP 95/77
[2016-10-09] MEDS: CEFTRIAXONE 1 G in IV D5W 50 ML IV SCH (16:34)
--- NOTE | 2016-10-09 17:50 | NUR ---
RN NOTES PT. IS RECEIVING HEMODIALYSIS WITHOUT OUTPUT.
--- NOTE | 2016-10-09 19:00 | NUR ---
RN NOTES BEFORE EDG PROCEDURE PT.'S BILATERAL SOFT WRIST RESTRAINTS WERE REMOVED AND HAVE NOT BEEN REAPPLIED SINCE.
--- NOTE | 2016-10-09 19:30 | NUR ---
RN CLOSING NOTES PT. IS IN BED SLEEPING, OPENS EYES AND RESPONSIVE, A&OX1, [place] SPEAKING, AND LEGALLY BLIND. = NO SOB, BREATHING ON ROOM AIR UNLABORED. NO S/S OF DISTRESS. IV FLUIDS RUNNING AT 75 ML/HR ON RIGHT WRIST. PT. IS RECEIVING HEMODIALYSIS, AND HAS A RIGHT CHEST WALL CATHETER. BED IS IN LOW POSITION, 3 SLIP MIXER RAILS UP FOR SAFETY, AND CALL LIGHT IS WITHIN REACH. WILL ENDORSE REPORT TO DELIVERY MAN NURSE.
--- NOTE | 2016-10-09 19:30 | NUR ---
RN NOTES RECEIVED PT ASLEEP, HOB SLIGHTLY ELEVATED, BREATHING REGULAR AND UNLABORED, NO SIGNS OF DISTRESS AND DISCOMFORT NOTED. ON ROOM AIR AND TOLERATED WELL. RIGHT UPPER CHEST PERMA CATH INTACT WITH ONGOING HEMODIALYSIS AND TOLERATED WELL. IV ACCESS ON RIGHT WRIST INTACT WITH ONGOING IVF INFUSING WELL. G- TUBE INTACT, WILL RESUME FEEDING ORDERED. BILATERAL SOFT WRIST RESTRAINT ON, WITH GOOD CIRCULATION NOTED. BOTH HEELS OFFLOADED, WILL TURN AND REPOSITION SCHEDULED. KEPT COMFORTABLE AND ATTENDED. WILL CONTINUE TO MONITOR PT.
--- NOTE | 2016-10-09 20:14 | NUR ---
RN NOTES BEFORE PT. LEFT FOR EDG PROCEDURE PT. RESTRAINTS WERE REMOVED.
[2016-10-09 20:28] VITALS: BP_SYST 105; BP_SYST 78; BP_DIAS 43; BP_DIAS 62
[2016-10-09] MEDS: MIRTAZAPINE 15 MG TABLET PO SCH (21:16)
[2016-10-09] MEDS: DONEPEZIL 5 MG TABLET PO SCH (21:16)
[2016-10-09] MEDS: GLYTROL 1,000 ML BAG GT PRN (21:18)
[2016-10-09] MEDS: GABAPENTIN 100 MG CAPSULE PO SCH (21:18)
[2016-10-09 22:00] VITALS: BP 105/62
--- NOTE | 2016-10-09 23:55 | NUR ---
RN NOTES BLOOD SUGAR CHECKED 124 MG/DL, NO INSULIN COVERAGE PER SLIDING SCALE. NO SIGNS OF HYPOGLYCEMIA NOTED. WILL CONTINUE TO MONITOR.
[2016-10-10] MEDS: PANTOPRAZOLE 80 MG in IV NS 0.9% 500 ML IV PRN ×2 (01:48→17:22)
[2016-10-10] MEDS: BLOOD SUGAR DIAGNOSTIC 1 EACH STRIP IN SCH ×3 (05:35→17:48)
[2016-10-10] MEDS: INSULIN REGULAR, HUMAN 100 UNIT/ML 3 ML VIAL SQ PRN ×3 (05:37→17:49)
--- NOTE | 2016-10-10 05:37 | NUR ---
RN NOTES BLOOD SUGAR CHECKED 196 MG/DL, 3 UNITS REGULAR INSULIN GIVEN SUBCU. WILL CONTINUE TO MONITOR PT.
[2016-10-10] MEDS: IV D5/0.45 NACL 1,000 ML IV SCH (05:44)
[2016-10-10 06:29] LABS: BASOPHILS % (AUTO) 0.3 % (0.0-2.0); EOSINOPHILS # (AUTO) 0.2 /CMM (0.0-0.7); HEMATOCRIT 30 % (33-45); HEMOGLOBIN 9.9 g/dL (11.5-14.8); LYMPHOCYTES % (AUTO) 18.4 % (20.0-44.0); MEAN CORPUSCULAR HEMOGLOBIN 29 PG (26.0-33.0); MEAN CORPUSCULAR HGB CONC 33 g/dl (31.0-36.0); MEAN CORPUSCULAR VOLUME 88 fL (82-100); MONOCYTES # (AUTO) 0.4 /CMM (0.1-1.30); MONOCYTES % (AUTO) 7.5 % (2.0-12.0); NEUTROPHILS # (AUTO) 3.9 /CMM (1.8-8.9); NEUTROPHILS % (AUTO) 69.8 % (43.0-81.0); PLATELET COUNT (AUTO) 189 /CMM (150-450); RDW COEFFICIENT OF VARIATION 17.8 (11.5-15.0); RED BLOOD CELL COUNT(AUTO) 3.39 MIL/uL (4.0-5.2); WHITE BLOOD COUNT (AUTO) 5.6 K/uL (4.3-11.0)
--- NOTE | 2016-10-10 06:52 | NUR ---
RN NOTES PT ASLEEP, BREATHING REGULAR AND UNLABORED, NO SOB, NOT IN DISTRESS , ON ROOM AIR AND TOLERATED WELL. VITAL SIGNS STABLE, AFEBRILE. NO EPISODE OF NAUSEA AND VOMITING. DENIES ANY PAIN AND DISCOMFORT. GT FEEDING TOLERATED WELL. ALL DUE MEDS GIVEN. TURNED AND REPOSITION SCHEDULED, HEELS OFFLOADED. PT CALM, ,QUIET AND COOPERATIVE. ALL NEEDS ATTENDED. WILL ENDORSE TO MORNING RN FOR CONTINUITY OF CARE.
[2016-10-10 07:02] LABS: CALCIUM, SERUM 7.4 mg/dL (8.5-10.1); CARBON DIOXIDE 26 mmol/L (21-32); CHLORIDE 107 mmol/L (98-107); CREATININE 2.4 mg/dL (0.6-1.3); GLUCOSE 230 mg/dL (74-106); MAGNESIUM 1.6 mg/dL (1.8-2.4); PHOSPHORUS 2.9 mg/dL (2.5-4.9); POTASSIUM 4.2 mmol/L (3.5-5.1); SODIUM SERUM 141 mmol/L (136-145); UREA NITROGEN, BLOOD 22 mg/dL (7-18)
--- NOTE | 2016-10-10 07:20 | NUR ---
RN MS NOTES RECEIVED PATIENT IN BED, NO APPARENT DISTRESS NOTED, DENIES PAIN ,DENIES SOB.IV LINE ON RIGHT WRIST PATENT, INFUSING D51/2 NS AT 75ML/HR. G TUBE FEEDING INFUSING WELL. SOFT WRIST RESTRAINTS ON, BRISK CAP REFIL BILATERALLY. ALL NEED MET, KEPT CLEAN AND DRY.
[2016-10-10 08:00] VITALS: BP 122/91
[2016-10-10] MEDS: LEVOTHYROXINE SODIUM 100 MCG TABLET PO SCH (09:29)
[2016-10-10] MEDS: AMIODARONE HCL 200 MG TABLET GT SCH (09:30)
[2016-10-10] MEDS: METOPROLOL TARTRATE 25 MG TABLET PO SCH ×2 (09:30→17:00)
[2016-10-10] MEDS: MICAFUNGIN SODIUM 100 MG in IV NS 0.9% 100 ML IV SCH (09:35)
[2016-10-10] MEDS ORDERED: SECONDARY IV SET 1 EA INFUS.SET MC ONE (11:14)
[2016-10-10] MEDS: Magnesium 1GM/D5W 100ML PREMIX 100 ML IV SCH ×2 (11:25→12:32)
[2016-10-10 16:00] VITALS: BP 107/75
[2016-10-10] MEDS: GLYTROL 1,000 ML BAG GT PRN (17:18)
[2016-10-10] MEDS: CEFTRIAXONE 1 G in IV D5W 50 ML IV SCH (17:18)
[2016-10-10 17:38] LABS: CARCINOEMBRYONIC AG (CEA) 8.9 ng/mL (0.0-4.7)
--- NOTE | 2016-10-10 19:00 | NUR ---
rn ms notes PATIENT IN BED,A/OX1, NO APPARENT DISTRESS NOTED. ALL DUE MEDS GIVEN, ALL NEEDS MET, KEPT CLEAN AND DRY. IV LINE ON RIGHT HAND INFILTRATED, NOT ABLE TO RE INSERT, OBTAINED MID LINE ORDER. AWAITING PLACEMENT TUBE FEEDING INFUSING WELL . WILL ENDORSE CARE TO PM SHIFT.SOFT WRIST RESTRAINTS, BRISK CAP REFILL ON BOTH EXTREMITIES, RESTRAINTS RELEASED Q2HRS.
--- NOTE | 2016-10-10 19:15 | NUR ---
RN OPEN NOTES RECEIVED PATIENT AWAKE IN BED, WITH FAMILY AT BEDSIDE. A/O X1. NO SIGNS OF DISTRESS OR DISCOMFORT. BREATHING EVEN AND UNLABORED. NO IV ACCESS AT THIS TIME. AWAITING MIDLINE INSERTION. HAS RUCW PERMCATH. G-TUBE INTACT, WITH FEEDING RUNNING, PATIENT TOLERATING WELL. ON BILATERAL SOFT WRIST RESTRAINTS, NO SKIN OR CIRCULATION ISSUES TO THE WRIST NOTED. BED IN LOW LOCKED POSITION WITH SIDE RAILS X2. CALL LIGHT WITHIN REACH. WILL CONTINUE TO MONITOR.
[2016-10-10 20:00] VITALS: BP 122/68
[2016-10-10] MEDS ORDERED: IV SET PRIMARY PUMP SET 1 EA INFUS.SET MC ONE (20:19)
[2016-10-10] MEDS: DONEPEZIL 5 MG TABLET PO SCH (21:34)
[2016-10-10] MEDS: MIRTAZAPINE 15 MG TABLET PO SCH (21:34)
[2016-10-10] MEDS: GABAPENTIN 100 MG CAPSULE PO SCH (21:34)
[2016-10-11] MEDS: BLOOD SUGAR DIAGNOSTIC 1 EACH STRIP IN SCH ×4 (00:08→17:41)
[2016-10-11] MEDS: INSULIN REGULAR, HUMAN 100 UNIT/ML 3 ML VIAL SQ PRN ×4 (00:10→17:47)
[2016-10-11] MEDS: IV D5/0.45 NACL 1,000 ML IV SCH ×3 (02:04→22:00)
[2016-10-11] MEDS: PANTOPRAZOLE 80 MG in IV NS 0.9% 500 ML IV PRN ×2 (06:40→18:26)
[2016-10-11 07:30] LABS: BASOPHILS % (AUTO) 0.1 % (0.0-2.0); EOSINOPHILS # (AUTO) 0.2 /CMM (0.0-0.7); EOSINOPHILS % (AUTO) 3.6 % (0.0-6.0); HEMATOCRIT 30 % (33-45); HEMOGLOBIN 10.1 g/dL (11.5-14.8); LYMPHOCYTES # (AUTO) 1.1 /CMM (0.8-4.8); LYMPHOCYTES % (AUTO) 22.7 % (20.0-44.0); MEAN CORPUSCULAR HEMOGLOBIN 29 PG (26.0-33.0); MEAN CORPUSCULAR HGB CONC 33 g/dl (31.0-36.0); MEAN CORPUSCULAR VOLUME 89 fL (82-100); MONOCYTES # (AUTO) 0.4 /CMM (0.1-1.30); MONOCYTES % (AUTO) 8.6 % (2.0-12.0); NEUTROPHILS # (AUTO) 3.3 /CMM (1.8-8.9); PLATELET COUNT (AUTO) 179 /CMM (150-450); RDW COEFFICIENT OF VARIATION 18.9 (11.5-15.0); RED BLOOD CELL COUNT(AUTO) 3.44 MIL/uL (4.0-5.2); WHITE BLOOD COUNT (AUTO) 5.1 K/uL (4.3-11.0)
--- NOTE | 2016-10-11 07:31 | NUR ---
RN CLOSING NOTES PATIENT RESTING IN BED, EASILY AROUSABLE TO NAME. A/O X1. NO SIGNS OF DISTRESS OR DISCOMFORT. BREATHING EVEN AND UNLABORED. HAS CLARY MIDLINE WITH D5 1/2NS INFUSING. HAS RUCW PERMCATH. G-TUBE INTACT, WITH FEEDING RUNNING, PATIENT TOLERATING WELL, NO RESIDUAL NOTED. ON BILATERAL SOFT WRIST RESTRAINTS, NO SKIN OR CIRCULATION ISSUES TO THE WRIST NOTED. ALL NEEDS MET. NO SIGNIFICANT CHANGES THROUGH THE NIGHT. PATIENT KEPT CLEAN DRY AND COMFORTABLE. REPOSITIONED Q2H. BED IN LOW LOCKED POSITION WITH SIDE RAILS X3. CALL LIGHT WITHIN REACH. ENDORSED TO AM SHIFT FOR ISABELLE.
--- NOTE | 2016-10-11 07:33 | NUR ---
RN MS NOTES RECEIVED PATIENT IN BED, NO APPARENT DISTRESS NOTED, NO SOB NOTED, DENIES PAIN. SOFT WRIST RESTRAINTS OFF, PATIENT IS SLEEPING COMFORTABLY. TUBE FEEDING INFUSING WELL, NOTED WITH RIGHT CHEST WALL PERMACATH. CLARY MID LINE PATENT INFUSING D51/2 NS AT 75ML/HR AND PROTONIX DRIP AT 50ML/HR. ALL NEEDS MET, KEPT CLEAN AND DRY, CALL LIGHT WITHIN REACH.
[2016-10-11 08:00] VITALS: BP 127/63
[2016-10-11] MEDS: METOPROLOL TARTRATE 25 MG TABLET PO SCH ×2 (09:00→16:24)
[2016-10-11] MEDS: AMIODARONE HCL 200 MG TABLET GT SCH (09:00)
--- NOTE | 2016-10-11 09:00 | NUR ---
RN MS NOTES HELD BP MEDS, DUE TO PATIENT BEING SCHEDULED FOR DIALYSIS TODAY.
[2016-10-11] MEDS ORDERED: SECONDARY IV SET 1 EA INFUS.SET MC ONE (09:20)
[2016-10-11 09:22] LABS: CALCIUM, SERUM 8.5 mg/dL (8.5-10.1); CARBON DIOXIDE 24 mmol/L (21-32); CHLORIDE 108 mmol/L (98-107); CREATININE 2.8 mg/dL (0.6-1.3); GLUCOSE 268 mg/dL (74-106); MAGNESIUM 2.5 mg/dL (1.8-2.4); PHOSPHORUS 4.2 mg/dL (2.5-4.9); SODIUM SERUM 140 mmol/L (136-145); UREA NITROGEN, BLOOD 26 mg/dL (7-18)
[2016-10-11] MEDS: LEVOTHYROXINE SODIUM 100 MCG TABLET PO SCH (09:24)
[2016-10-11] MEDS: LINEZOLID RTU BAG 600 MG in PREMIX 1 EA IV SCH ×2 (09:25→21:43)
--- NOTE | 2016-10-11 10:48 | NUR ---
RN MS NOTES ONGOING DIALYSIS, TOLERATING WELL.
[2016-10-11] MEDS: MICAFUNGIN SODIUM 100 MG in IV NS 0.9% 100 ML IV SCH (12:01)
[2016-10-11] MEDS ORDERED: EPOETIN ALFA (10,000 UNIT) 10,000 UNIT/ML VIAL IV ONE ×2 (13:30→14:30)
[2016-10-11 16:00] VITALS: BP 118/64
[2016-10-11] MEDS: GLYTROL 1,000 ML BAG GT PRN (16:00)
--- NOTE | 2016-10-11 18:39 | NUR ---
RN MS CLOSING NOTES PATIENT IN BED, A/O X 1 VERBALLY RESPONSIVE, NO APPARENT DISTRESS NOTED. ALL DUE MEDS GIVEN ALL NEEDS MET, KEPT CLEAN AND DRY.RECEIVED DIALYSIS TODAY 1 L OUT, TOLERATED WELL. FLAHERTY MIDLINE PATENT, TUBE FEEDING INFUSING WELL. WILL ENDORSE CARE TO PM SHIFT.
--- NOTE | 2016-10-11 19:10 | NUR ---
RN OPEN NOTES RECEIVED PATIENT AWAKE IN BED, WITH FAMILY AT BEDSIDE. A/O X1. NO SIGNS OF DISTRESS OR DISCOMFORT. BREATHING EVEN AND UNLABORED. IV ACCESS WITH CLARY MIDLINE WITH D5 V1/2 NS AND PROTONIX DRIP INFUSING. HAS RUCW PERMCATH. G-TUBE INTACT, WITH FEEDING RUNNING, PATIENT TOLERATING WELL. PATIENT S/P HD WITH 1 L OUT. ON BILATERAL SOFT WRIST RESTRAINTS, NO SKIN OR CIRCULATION ISSUES TO THE WRIST NOTED. BED IN LOW LOCKED POSITION WITH SIDE RAILS X2. CALL LIGHT WITHIN REACH. WILL CONTINUE TO MONITOR.
[2016-10-11 20:00] VITALS: BP 115/65
[2016-10-11] MEDS: DONEPEZIL 5 MG TABLET PO SCH (21:43)
[2016-10-11] MEDS: MIRTAZAPINE 15 MG TABLET PO SCH (21:43)
[2016-10-11] MEDS: GABAPENTIN 100 MG CAPSULE PO SCH (21:43)
[2016-10-12] MEDS: INSULIN REGULAR, HUMAN 100 UNIT/ML 3 ML VIAL SQ PRN ×4 (00:09→18:02)
[2016-10-12] MEDS: BLOOD SUGAR DIAGNOSTIC 1 EACH STRIP IN SCH ×4 (00:13→18:01)
[2016-10-12] MEDS: PANTOPRAZOLE 80 MG in IV NS 0.9% 500 ML IV PRN (04:11)
[2016-10-12] MEDS ORDERED: Z GUARD REMEDY 4 OZ OINT TP ONE (05:42)
[2016-10-12] MEDS ORDERED: Z GUARD REMEDY 2 OZ OINT TP PRN (06:00)
[2016-10-12 06:52] LABS: BASOPHILS % (AUTO) 0.2 % (0.0-2.0); EOSINOPHILS # (AUTO) 0.2 /CMM (0.0-0.7); HEMATOCRIT 31 % (33-45); HEMOGLOBIN 10.1 g/dL (11.5-14.8); LYMPHOCYTES % (AUTO) 20.6 % (20.0-44.0); MEAN CORPUSCULAR HEMOGLOBIN 30 PG (26.0-33.0); MEAN CORPUSCULAR HGB CONC 33 g/dl (31.0-36.0); MEAN CORPUSCULAR VOLUME 89 fL (82-100); MONOCYTES # (AUTO) 0.4 /CMM (0.1-1.30); MONOCYTES % (AUTO) 8.7 % (2.0-12.0); NEUTROPHILS # (AUTO) 3.1 /CMM (1.8-8.9); NEUTROPHILS % (AUTO) 66.5 % (43.0-81.0); PLATELET COUNT (AUTO) 184 /CMM (150-450); RDW COEFFICIENT OF VARIATION 18.9 (11.5-15.0); RED BLOOD CELL COUNT(AUTO) 3.43 MIL/uL (4.0-5.2); WHITE BLOOD COUNT (AUTO) 4.7 K/uL (4.3-11.0)
--- NOTE | 2016-10-12 06:57 | NUR ---
RN CLOSING NOTES PATIENT RESTING IN BED, EASILY AROUSABLE TO NAME. A/O X1. NO SIGNS OF DISTRESS OR DISCOMFORT. BREATHING EVEN AND UNLABORED. HAS CLARY MIDLINE WITH D5 1/2NS AND PROTONIX DRIP INFUSING. HAS RUCW PERMCATH. G-TUBE INTACT, WITH FEEDING RUNNING, PATIENT TOLERATING WELL, NO RESIDUAL NOTED. ON BILATERAL SOFT WRIST RESTRAINTS, NO SKIN OR CIRCULATION ISSUES TO THE WRIST NOTED. ALL NEEDS MET. NO SIGNIFICANT CHANGES THROUGH THE NIGHT. PATIENT KEPT CLEAN DRY AND COMFORTABLE. REPOSITIONED Q2H. BED IN LOW LOCKED POSITION WITH SIDE RAILS X3. CALL LIGHT WITHIN REACH. WILL ENDORSE TO AM SHIFT FOR ISABELLE.
[2016-10-12 07:06] LABS: CARBON DIOXIDE 25 mmol/L (21-32); CHLORIDE 104 mmol/L (98-107); CREATININE 2.4 mg/dL (0.6-1.3); GLUCOSE 274 mg/dL (74-106); PHOSPHORUS 3.3 mg/dL (2.5-4.9); POTASSIUM 3.9 mmol/L (3.5-5.1); SODIUM SERUM 137 mmol/L (136-145); UREA NITROGEN, BLOOD 18 mg/dL (7-18)
--- NOTE | 2016-10-12 07:50 | NUR ---
RN MS NOTES RECEIVED PATIENT IN BED,VERBALLY RESPONSIVE. NO APPARENT DISTRESS NOTED, DENIES PAIN, DENIES SOB.TUBE FEEDING RUNNING WELL, CLARY MID LINE PATENT INFUSING D5 1/2 NS AT 75ML/HR AND PROTONIX DRIP AT 50 ML/HR. SOFT WRIST RESTRAINTS ON, SKIN AND CIRCULATION CHECKS DONE. ALL NEEDS MET, KEPT CLEAN AND DRY. WILL CONTINUE TO MONITOR.
[2016-10-12 08:00] VITALS: BP 140/76
[2016-10-12] MEDS: LEVOTHYROXINE SODIUM 100 MCG TABLET PO SCH (09:23)
[2016-10-12] MEDS: METOPROLOL TARTRATE 25 MG TABLET PO SCH ×2 (09:24→17:41)
[2016-10-12] MEDS: AMIODARONE HCL 200 MG TABLET GT SCH (09:24)
[2016-10-12] MEDS: LINEZOLID RTU BAG 600 MG in PREMIX 1 EA IV SCH (09:28)
[2016-10-12] MEDS: MICAFUNGIN SODIUM 100 MG in IV NS 0.9% 100 ML IV SCH (11:58)
[2016-10-12] MEDS: IV D5/0.45 NACL 1,000 ML IV SCH (12:14)
[2016-10-12] MEDS ORDERED: LINE600I9 IV (12:37)
[2016-10-12] MEDS ORDERED: MICA100V IV (12:37)
[2016-10-12 17:41] VITALS: BP 150/80
--- NOTE | 2016-10-12 18:15 | NUR ---
RN MS SUSHANT NOTES PATIENT LEFT IN STABLE CONDITION, ON A GURNEY VIA AMBULANCE, ACCOMPANIED BY TWO SENIOR LOAN PROCESSOR. PATIENT VERBALLY RESPONSIVE, DENIES PAIN, DENIES SOB. ALL DUE MEDS GIVEN ALL NEEDS MET. PATIENT UNABLE TO SIGN DUE TO CONDITION, BELONGINGS LIST AND DISCHARGE INSTRUCTIONS CO SIGNED BY TWO RNS. DISCHARGE INSTRUCTIONS GIVEN TO SENIOR LOAN PROCESSOR. REPORT GIVEN TO MIGUEL FORM 4 . SON ALEX NOTIFIED OF PATIENTS TRANSFER. SKIN ASSESSMENT DONE PICTURES IN CHART, NO NEW SKIN ALTERATIONS AT THIS TIME. EXIT CARE UTILIZED TO PROVIDE EDUCATIONAL MATERIAL. Addendum: 10/12/16 at 1941 by GARCIA FREEMAN RN ,CLARY MIDLINE LEFT IN PLACE, PATIENT WILL BE CONTINUING IV ATB AT [facility], MIGUEL AWARE. CLARY PATENT NO S/S OF INFILTRATION.
== END 2016-10-12 18:10 | DRG 871 ==
LOC: ER 14:56 → TELE 16:27 → MED 10-08 09:00
PROVIDERS: ADMIT Internal Medicine; ATTEND Internal Medicine
PROC: 30233N1 Transfusion of Nonautologous Red Blood Cells into Peripheral Vein, Percutaneous Approach (ICD-10-PCS; 2016-10-07)
PROC: 5A1D60Z (ICD-10-PCS; 2016-10-09)
PROC: 0DJ08ZZ Inspection of Upper Intestinal Tract, Via Natural or Artificial Opening Endoscopic (ICD-10-PCS; principal; 2016-10-09 12:20)
PROC: 05H633Z Insertion of Infusion Device into Left Subclavian Vein, Percutaneous Approach (ICD-10-PCS; 2016-10-10)
DX: A41.9 Sepsis, unspecified organism (principal); G93.40 Encephalopathy, unspecified; N18.6 End stage renal disease; R53.2 Functional quadriplegia; K26.4 Chronic or unspecified duodenal ulcer with hemorrhage; I12.0 Hypertensive chronic kidney disease with stage 5 chronic kidney disease or end stage renal disease; G93.1 Anoxic brain damage, not elsewhere classified; N39.0 Urinary tract infection, site not specified; B37.49 Other urogenital candidiasis; F09 Unspecified mental disorder due to known physiological condition; I25.10 Atherosclerotic heart disease of native coronary artery without angina pectoris; K59.00 Constipation, unspecified; Z86.73 Personal history of transient ischemic attack (TIA), and cerebral infarction without residual deficits; R13.10 Dysphagia, unspecified; E03.9 Hypothyroidism, unspecified; E66.9 Obesity, unspecified; E78.5 Hyperlipidemia, unspecified; M19.90 Unspecified osteoarthritis, unspecified site; K21.9 Gastro-esophageal reflux disease without esophagitis; J44.9 Chronic obstructive pulmonary disease, unspecified; I48.91 Unspecified atrial fibrillation; Z87.01 Personal history of pneumonia (recurrent); Z90.11 Acquired absence of right breast and nipple; Z99.2 Dependence on renal dialysis; Z87.11 Personal history of peptic ulcer disease; Z93.1 Gastrostomy status; Z79.01 Long term (current) use of anticoagulants; G40.909 Epilepsy, unspecified, not intractable, without status epilepticus; E11.22 Type 2 diabetes mellitus with diabetic chronic kidney disease; D50.0 Iron deficiency anemia secondary to blood loss (chronic); G25.3 Myoclonus; Z68.25 Body mass index [BMI] 25.0-25.9, adult; F03.90 Unspecified dementia, unspecified severity, without behavioral disturbance, psychotic disturbance, mood disturbance, and anxiety; D69.2 Other nonthrombocytopenic purpura; B95.2 Enterococcus as the cause of diseases classified elsewhere; D63.8 Anemia in other chronic diseases classified elsewhere; L98.8 Other specified disorders of the skin and subcutaneous tissue; E11.40 Type 2 diabetes mellitus with diabetic neuropathy, unspecified
CPT/HCPCS: 36415; 70450-TC; 71010-TC; 80048-TC; 80053-TC; 80076-TC; 81000-TC; 82306; 82378; 82553-TC; 82728-TC; 82746; 82962-TC; 83010; 83540-TC; 83605-TC; 83615-TC; 83735-TC; 84100-TC; 84443-TC; 84484-TC; 84550-TC; 85025-TC; 85045-TC; 85610-TC; 85652-TC; 85730-TC; 86850-TC; 86921-TC; 87040-TC; 87081-TC; 87086-TC; 87186-TC; 90935-TC; 92611-TC; 93307-TC; 95819-TC; A4216; A4606; A6403; C9113; J0696; J0885; J1815; J2020; J2060; J2248; J2270; J2405; J3475; J3490; J7030; J7040; J7050; J7060; P9016-BL; Z7610